=== PATIENT | male | born 1960 | race Caucasian/White ===

== ENCOUNTER 2016-05-23 06:24 | Inpatient (IN) | payer OTHER, MEDICARE ==
[2016-05-23] MEDS ORDERED: SODIUM CHLORIDE 1,000 ML IV STA ×3 (06:38→09:27)
[2016-05-23 07:17] LABS: MCH 20.8 pg (25.7-33.7); MCHC 30.3 g/dl (32.0-35.9); MEAN CELL VOLUME 68.5 fl (80-96); MEAN PLT VOLUME 8.4 fl (7.5-11.1); RDW 18.3 % (11.9-15.9); WHITE BLOOD COUNT 27.5 K/mm3 (4.0-10.0)
[2016-05-23 07:33] LABS: VENOUS BLOOD GAS HCO3 29.2 meq/L (22-29); VENOUS PH 7.41 (7.31-7.41)
--- NOTE | 2016-05-23 07:42 | PDOC ---
History of Present Illness <Kevin Rodriguez - Last Filed: 05/23/16 10:30> - General History Source: Patient Exam Limitations: No Limitations - History of Present Illness Initial Comments: 05/23/16 08:54 The patient is a 55 year old male, with a significant past medical history of heroin abuse (IV use), who presents to the emergency department with a fever onset last night. He states that his fever has been ranging from 103-104 degrees F. He denies taking anything for his symptoms. He reports that he is an active heroin user who is trying to quit. He states that he wants to get into a detox program. He also states that his is also a heroin user. He reports that he uses clean needles from [facility] and only uses them once. He also reports that he has been tested for HIV in the past and has been negative. He notes that he is willing to be tested again. The patient denies chest pain, shortness of breath, headache and dizziness. Denies chills, nausea, vomit, diarrhea and constipation. Denies dysuria, frequency, urgency and hematuria. Allergies: Penicillin Past surgical history: None reported Social history: Heroin use (IV use) <Jorge Weber - Last Filed: 05/23/16 10:37> - General Chief Complaint: SIRS, Suspected/Possible Stated Complaint: FEVER Time Seen by Provider: 05/23/16 07:12 Past History - Psycho/Social/Smoking Cessation Hx Suicidal Ideation: No Smoking History: Unknown if ever smoked <JenniferKevin - Last Filed: 05/23/16 10:30> <Jorge Weber - Last Filed: 05/23/16 10:37> - Past Medical History Allergies/Adverse Reactions: Allergies Allergy/AdvReac Type Severity Reaction Status Date / Time Penicillins Allergy Verified 05/23/16 08:02 Review of Systems - Review of Systems Able to Perform ROS?: Yes Comments:: 05/23/16 08:54 CONSTITUTIONAL: +Fever. No chills, no fatigue EYES: No visual changes ENT: No ear pain, no sore throat CARDIOVASCULAR: No chest pain, no palpitations RESPIRATORY: No cough, no SOB GI: No abdominal pain, no nausea, no vomiting, no constipation, no diarrhea GENITOURINARY: No dysuria, no frequency, no hematuria MUSKULOSKELETAL: No backpain, no joint pain, no myalgias SKIN: No rash NEURO: No headache <Jorge Weber - Last Filed: 05/23/16 10:37> *Physical Exam - Vital Signs Last Vital Signs Temp Pulse Resp BP Pulse Ox 102.5 F H 117 H 21 157/70 100 05/23/16 06:35 05/23/16 06:35 05/23/16 06:35 05/23/16 06:35 05/23/16 06:35 <Jennifer,Boris - Last Filed: 05/23/16 10:30> - Vital Signs Last Vital Signs Temp Pulse Resp BP Pulse Ox 102.5 F H 117 H 21 157/70 100 05/23/16 06:35 05/23/16 06:35 05/23/16 06:35 05/23/16 06:35 05/23/16 06:35 - Physical Exam Comments: 05/23/16 08:54 CONSTITUTIONAL: Disheveled appearance, obese; lethargic but easily arousable. HEAD: Normocephalic; atraumatic EYES: PERRL; EOM intact ENMT: +Poor oral hygiene. External appears normal; normal oropharynx NECK: Supple; non-tender; no cervical lymphadenopathy CARD: +III/ harsh systolic murmur best heard left parasternal 5th intercoastal space. Normal S1, S2; rubs, or gallops RESP: Normal chest excursion with respiration; breath sounds clear and equal bilaterally; no wheezes, rhonchi, or rales ABD: Soft, non-distended; non-tender; no palpable organomegaly, no palpable hernias EXT: +Right lower extremity is Warm to touch, edematous and well demarcated erythema. Hardening of the soft tissue swelling to the right medial thigh. Normal ROM in all four extremities; non-tender to palpation; distal pulses intact SKIN: +Multiple excoriated lesions with track arzate on the right lower extremity. No petechiae NEURO: No focal neurological deficiencies. Lethargic, arousable, moving all extremities, answer questions appropriately <Jorge Weber - Last Filed: 05/23/16 10:37> Heart Score/ECG Review #1 ECG reviewed & interpreted by me at: 08:56 05/23/16 08:51 Ventricular rate: 109 bpm Sinus tachycardia Possible left atrial enlargement Incomplete right bundle branch block <CaitlinMichelle riveracrystal Thompsone - Last Filed: 05/23/16 10:37> ED Treatment Course - LABORATORY CBC & Chemistry Diagram: 05/23/16 07:05 05/23/16 07:05 - ADDITIONAL ORDERS Additional order review: Laboratory Results 05/23/16 07:30 VBG pH 7.41 POC VBG pCO2 47.3 POC VBG pO2 24.6 L 05/23/16 07:05 RBC 4.13 MCV 68.5 L MCHC 30.3 L RDW 18.3 H MPV 8.4 Neutrophils % Y Lymphocytes % Y <JenniferKevin - Last Filed: 05/23/16 10:30> - LABORATORY CBC & Chemistry Diagram: 05/23/16 07:05 05/23/16 07:05 - ADDITIONAL ORDERS Additional order review: Laboratory Results 05/23/16 05/23/16 05/23/16 07:30 07:05 07:05 INR PTT (Actin FS) VBG pH 7.41 POC VBG pCO2 47.3 POC VBG pO2 24.6 L Sodium Potassium Chloride Carbon Dioxide Anion Gap BUN Creatinine Creat Clearance w eGFR Random Glucose Lactic Acid 0.780 Calcium Total Bilirubin AST ALT Alkaline Phosphatase Creatine Kinase Troponin I Total Protein Albumin Blood Type A POSITIVE Antibody Screen Negative 05/23/16 05/23/16 07:05 07:05 INR 1.17 H PTT (Actin FS) 21.5 L VBG pH POC VBG pCO2 POC VBG pO2 Sodium 132 L Potassium 3.6 Chloride 96 L Carbon Dioxide 28 Anion Gap 8 BUN 9 Creatinine 0.8 Creat Clearance w eGFR > 60 Random Glucose 128 H Lactic Acid Calcium 8.8 Total Bilirubin 0.5 AST 9 L ALT 13 Alkaline Phosphatase 73 Creatine Kinase 50 Troponin I < 0.02 Total Protein 7.1 Albumin 3.2 L Blood Type Antibody Screen 05/23/16 07:05 RBC 4.13 MCV 68.5 L MCHC 30.3 L RDW 18.3 H MPV 8.4 Neutrophils % Y Lymphocytes % Y - RADIOLOGY Radiograph Interpretation: 05/23/16 08:49 Chest X-Ray Reviewed by: Dr. Gregory Whitaker Impression: No acute pathology. Right lower extremity doppler Reviewed by: Dr. Nico Sinclair Impression: No DVT is identified involving the right leg. <Jorge Weber - Last Filed: 05/23/16 10:37> Medical Decision Making - Medical Decision Making 05/23/16 10:31 Patient is a 55-year-old male with history of IVDA who presents with high fever , shaking chills, right lower extremity cellulitis and likely acute infective endocarditis. On initial evaluation, patient noted to be tachycardic and febrile. Physical exam reveals no evidence of meningismus, harsh 3/6 systolic murmur was noted (best heard in the left parasternal area, fifth intercostal space; splinter hemorrhages noted to the nailbed of the left second toe. CBC reveals significant leukocytosis with bandemia. CMP reveals a normal lactic acid. Urinalysis is within normal limit without evidence of pyuria. Chest x-ray reveals no evidence of infiltrate or effusion. Right lower extremity Doppler shows no evidence of DVT. 3 sets of blood cultures are been obtained. IV vancomycin and gentamicin has been administered for gram-positive and gram- negative coverage respectively. Patient will require admission for continuous IV antibiotic therapy and echocardiography to evaluate for possible vegetations. EKG reveals sinus tachycardia with first-degree AV block and RBBB which may represent extension of the infection within the myocardium. Dr. Cartagena of cardiology has been consulted and agrees with the plan of care. <Kevin Rodriguez - Last Filed: 05/23/16 10:30> - Medical Decision Making 05/23/16 09:22 Dr. Patel was called regarding the patient at 8:55am Dr. Patel was consulted regarding the patient at 9:09am [phone] <Jorge Weber - Last Filed: 05/23/16 10:37> *DC/Admit/Observation/Transfer - Discharge Dispostion Admit: Yes - Attestations Physician Attestion: 05/23/16 10:31 The documentation was prepared by the scribe under my direct supervision. I have reviewed the documentation which correctly represents the findings, medical decision-making and critical action taken by me. <Kevin Rodriguez - Last Filed: 05/23/16 10:30> - Attestations Scribe Attestion: 05/23/16 08:54 Documentation prepared by Jorge Webre, acting as resident medical officer for Kevin Rodriguez MD. <TiaJorge Camille - Last Filed: 05/23/16 10:37> Diagnosis at time of Disposition: Cellulitis and abscess of leg, except foot Sepsis Qualifiers: Sepsis type: sepsis due to unspecified organism Qualified Code(s): A41.9 - Sepsis, unspecified organism Endocarditis, valve unspecified Qualifiers: Endocarditis type: infective Infective endocarditis organism: bacterial Chronicity: acute Qualified Code(s): I33.0 - Acute and subacute infective endocarditis
[2016-05-23 07:50] LABS: INR 1.17 (0.82-1.09); PROTHROMBIN TIME (PATIENT) 12.9 SEC (9.98-11.88)
[2016-05-23 07:53] LABS: ACTIVATED PTT 21.5 SECONDS (26.9-34.4)
[2016-05-23 08:00] LABS: ALBUMIN 3.2 g/dl (3.4-5.0); ANION GAP 8 (8-16); BILIRUBIN,TOTAL 0.5 mg/dL (0.2-1.0); CALCIUM 8.8 mg/dL (8.5-10.1); CO2 28 mmol/L (21-32); CREATININE 0.8 mg/dL (0.7-1.3); GLUCOSE,RANDOM 128 mg/dL (74-106); SGOT/AST 9 U/L (15-37); SGPT/ALT 13 U/L (12-78); TOT PROT 7.1 g/dl (6.4-8.2)
[2016-05-23 08:02] LABS: ALK PHOS 73 U/L (45-117); TROPONIN I < 0.02 ng/ml (0.00-0.05)
[2016-05-23] MEDS ORDERED: ACETAMINOPHEN 1000 MG/100 ML VIAL (NON FORMULARY) IVPB ONE (08:15)
[2016-05-23] MEDS ORDERED: GENTAMICIN INJECTION 120 MG in DEXTROSE 5%-WATER - 250 ML IVPB ONE (09:00)
[2016-05-23] MEDS ORDERED: VANCOMYCIN 1,500 MG in DEXTROSE 5%-WATER - 500 ML IVPB ONE (09:00)
[2016-05-23 09:28] LABS: PLATELET COMMENT2 NO CLOTTING DETECTED; PLATELET COMMENT3 MOD LARGE PLTS; PLATELET COUNT 237 K/MM3 (134-434); PLATELET ESTIMATE ADEQUATE (NORMAL)
[2016-05-23 09:29] LABS: ANISOCYTOSIS 2+; HYPOCHROMIA 2+; MICROCYTOSIS 2+; POIKILOCYTOSIS 2+; POLYCHROMASIA 2+; TOXIC GRANULATION FEW
[2016-05-23 10:20] LABS: URINE APPEARANCE CLEAR; URINE BILIRUBIN NEGATIVE (NEGATIVE); URINE BLOOD NEGATIVE (NEGATIVE); URINE COLOR COLORLESS; URINE GLUCOSE (UA) NEGATIVE (NEGATIVE); URINE KETONE NEGATIVE (NEGATIVE); URINE LEUK ESTERASE NEGATIVE (NEGATIVE); URINE NITRITE NEGATIVE (NEGATIVE); URINE PROTEIN NEGATIVE (NEGATIVE); URINE UROBILINOGEN NEGATIVE E.U./dl (0.2-1.0)
[2016-05-23 12:52] LABS: HIV 1 & 2 AB NEGATIVE; HIV 1 AGp24 NEGATIVE
--- NOTE | 2016-05-23 13:01 | PN ---
Teaching Attending Note Name of Resident: Angelica Sneed ATTENDING PHYSICIAN STATEMENT I saw and evaluated the patient. I reviewed the resident's note and discussed the case with the resident. I agree with the resident's findings and plan as documented. SUBJECTIVE: This is a 55-year-old man with a history of IV heroin abuse who presented to the ER with fever that started last night. He reports redness and pain of his right leg. OBJECTIVE: Vital Signs Period Temp Pulse Resp BP Sys/Stearns Pulse Ox Last 24 Hr 102.5 F 107-117 16-21 157-166/67-70 96-100 HEART: S1 S2, tachycardic, (+) 2/6 systolic murmur LUNGS: Clear ABDOMEN: Soft, non-tender, non-distended, normal BS EXTREMITIES: Erythema and swelling of RLE ASSESSMENT AND PLAN: This is a 55-year-old man with a history of heroin abuse who comes to the ER with fever and redness of his RLE. 1. Sepsis secondary to RLE cellulitis - Consider endocarditis - Vancomycin, Gentamicin given in ER - IV fluid - Follow up blood cultures - Echocardiogram - ID consult 2. Cardiac murmur - Echocardiogram 3. Anemia, microcytic - No prior labs available - Check iron studies 4. Heroin abuse - Start Methadone taper
--- NOTE | 2016-05-23 13:14 | EKG ---
Test Reason : Blood Pressure : / mmHG Vent. Rate : 109 BPM Atrial Rate : 109 BPM P-R Int : 202 ms QRS Dur : 098 ms QT Int : 322 ms P-R-T Axes : 065 027 055 degrees QTc Int : 433 ms SINUS TACHYCARDIA WITH 1ST DEGREE A-V BLOCK POSSIBLE LEFT ATRIAL ENLARGEMENT INCOMPLETE RIGHT BUNDLE BRANCH BLOCK WHEN COMPARED WITH ECG OF 06-FEB-2008 02:41, INCOMPLETE RIGHT BUNDLE BRANCH BLOCK IS NOW PRESENT Confirmed by PHILIP DAWSON MD ([id number]) on 05/23/2016 1:13:47 PM Referred By: Confirmed By:PHILIP DAWSON MD
--- NOTE | 2016-05-23 13:38 | HP ---
CHIEF COMPLAINT: Fever PCP: None HISTORY OF PRESENT ILLNESS: 55 year old male with a significant PMH of IV heroin abuse, anxiety comes to the hospital complaining of fever that started last night. He measured that at home and was 103-104. Additionally he noticed that his right lower extremity is red and swollen for several weeks. He used it to inject drugs. He denies pain in right leg. Last time he used heroin was yesterday.The pt is complaining of chronic constipation. He denies chills, chest pain, palpitations, SOB, cough, abdominal pain, N/V, diarrhea, dysuria, increased frequency, urgency. ER course was notable for: (1) WBC, T:102.5 (2) EKG (3) Dupplex of RLE PAST MEDICAL HISTORY: IV drug abuse for 6 years, iv heroin everyday PAST SURGICAL HISTORY: right elbow repair after stubbing in 1999 Social History: Smoking:Denies, never smoker Alcohol:Denies, Drugs: Yes, heroin Family History: Mother: DM, Father:None Allergies Penicillins Allergy (Verified 05/23/16 08:02) HOME MEDICATIONS: Xanax 1 mg PRN REVIEW OF SYSTEMS CONSTITUTIONAL: diaphoresis, fever Absent: chills, generalized weakness, malaise, weight change HEENT: Absent: rhinorrhea, nasal congestion, throat pain, throat swelling, difficulty swallowing, mouth swelling, ear pain, eye pain, visual changes CARDIOVASCULAR: Absent: chest pain, syncope, palpitations, irregular heart rate, lightheadedness , peripheral edema RESPIRATORY: Absent: cough, shortness of breath, dyspnea with exertion, orthopnea, wheezing, GASTROINTESTINAL:constipation Absent: abdominal pain, abdominal distension, nausea, vomiting, diarrhea, GENITOURINARY: Absent: dysuria, frequency, urgency, hesitancy, hematuria, flank pain, genital pain MUSCULOSKELETAL: Absent: myalgia, arthralgia, joint swelling, back pain, neck pain SKIN: rash in right lower extremity Absent: itching, pallor ENDOCRINE: Absent: unexplained weight gain, unexplained weight loss, heat intolerance, cold intolerance NEUROLOGIC: Absent: headache, focal weakness or paresthesias, dizziness, unsteady gait, PSYCHIATRIC: Absent: anxiety, depression PHYSICAL EXAMINATION Vital Signs - 24 hr 05/23/16 10:24 Pulse Rate [ 107 H Left Radial] Respiratory 16 Rate Blood Pressure 166/67 [Right Arm] O2 Sat by Pulse 96 Oximetry (%) GENERAL: Awake, alert, and fully oriented. HEAD: Normal with no signs of trauma. EYES: Pupils equal, round and reactive to light, extraocular movements intact, sclera anicteric, conjunctiva clear. EARS, NOSE, THROAT: Ears normal, nares patent, oropharynx clear without exudates , dental caries. Moist mucous membranes. NECK: Normal range of motion, supple without lymphadenopathy, JVD, or masses. LUNGS: Breath sounds equal, clear to auscultation bilaterally. No wheezes, and no crackles. No accessory muscle use. HEART: Regular rate and rhythm, S1 and S2, systolic murmur over left sternal border, no rub or gallop. ABDOMEN: Obese, soft, nontender, not distended, normoactive bowel sounds, no guarding, no rebound, no masses. No hepatomegaly or splenomegaly. MUSCULOSKELETAL: Normal range of motion at all joints. No bony deformities or tenderness. No CVA tenderness. UPPER EXTREMITIES: No peripheral edema, RUE: track arzate. No nail changes. LOWER EXTREMITIES: 2+ pulses, warm, No calf tenderness. No peripheral edema, RLE : redness up to the knee, several small wounds in thigh and one below the knee, draining clear fluid, multiple track arzate. LLE: no skin changes, redness in second toe. Upper extremities have track arzate, no wounds. Fungal infection in both feet. NEUROLOGICAL: CN 2-12 intact. Face symmetric, strength 5/5, no sensation channges, nl gait. SKIN: Warm, dry, normal turgor. ASSESSMENT/PLAN: 55 year old male with a significant PMH of IV heroin abuse, anxiety comes to the hospital complaining of fever that started last night. He measured that at home and was 103-104. Additionally he noticed that his right lower extremity is red and swollen. He is admitted for sepsis, possibly endocarditis due to cellulitis. Sepsis, possibly endocarditis due to cellulitis: -IV abx:Gentamycin and Vancomycin given in ED. -discussed with Dr. Montano and ordered Ceftizidime 2 g Q8h and Vanomycin 1.5 BID. -f/u blood cultures 3 sets -telemetry monitoring -ECHO ordered, -cardiology consultation -wound care -IVF NS -Tetanus shot Microcytic anemia: -will f/u iron studies -no known baseline -FOBT IV drug abuse; -Detox consultation -Methadone taper DVT PPX: -SCDs GI PPX: no recommendation F/E/N: NS/No changes/Regular Disposition: Admission to telemetry Problem List - Problem (1) Cellulitis and abscess of leg, except foot Code(s): L02.419 - CUTANEOUS ABSCESS OF LIMB, UNSPECIFIED L03.119 - CELLULITIS OF UNSPECIFIED PART OF LIMB (2) Endocarditis, valve unspecified Code(s): I38 - ENDOCARDITIS, VALVE UNSPECIFIED Qualifiers: Endocarditis type: infective Infective endocarditis organism: bacterial Chronicity: acute Qualified Code(s): I33.0 - Acute and subacute infective endocarditis (3) Sepsis Code(s): A41.9 - SEPSIS, UNSPECIFIED ORGANISM Qualifiers: Sepsis type: sepsis due to unspecified organism Qualified Code(s): A41.9 - Sepsis, unspecified organism Visit type - Emergency Visit Emergency Visit: Yes ED Registration Date: 05/23/16 Care time: The patient presented to the Emergency Department on the above date and was hospitalized for further evaluation of their emergent condition. - New Patient This patient is new to me today: Yes Date on this admission: 05/23/16 - Critical Care Critical Care patient: No
[2016-05-23] MEDS ORDERED: SODIUM CHLORIDE 1,000 ML IV SCH (13:45)
[2016-05-23 13:50] VITALS: BMI 30.7
[2016-05-23] MEDS ORDERED: diazePAM 5 MG TABLET PO PRN (15:09)
--- NOTE | 2016-05-23 16:51 | CONSULT ---
Consult Detox [facility] Reason for Current Admission/Consult: opioid withdrawal sx. Referred by:: Angelica Sneed Res - History History of Present Illness: 55 y/o man came to ED because of fever 102-104F for the past 2-4 days. Pt. reports using heroin IV on a regular basis. - History Source History Provided By: Patient, Medical Record - Alcohol/Substance Use Hx Alcohol Use: No Hx Substance Use: Yes (heroin) - Current Drug/Alcohol Use Heroin Route: Injection Frequency: Daily Amount used: 10 bags Age of first use: 38 Date of Last Use: 05/22/16 - Significant Medical Findings: Laboratory Tests 05/23/16 05/23/16 05/23/16 07:05 07:05 07:05 WBC 27.5 H RBC 4.13 Hgb 8.6 L Hct 28.3 L MCV 68.5 L MCHC 30.3 L RDW 18.3 H Plt Count 237 MPV 8.4 Neutrophils % 81.0 Lymphocytes % 2.0 L Monocytes % 5.0 Band Neutrophils 12.0 H Toxic Granulation Few Platelet Estimate Adequate Platelet Comment No clotting detected Polychromasia 2+ Hypochromic-Microcytic 2+ Poikilocytosis 2+ Anisocytosis 2+ Microcytosis 2+ INR 1.17 H PTT (Actin FS) 21.5 L VBG pH POC VBG pCO2 POC VBG pO2 Sodium 132 L Potassium 3.6 Chloride 96 L Carbon Dioxide 28 Anion Gap 8 BUN 9 Creatinine 0.8 Creat Clearance w eGFR > 60 Random Glucose 128 H Lactic Acid Calcium 8.8 Total Bilirubin 0.5 AST 9 L ALT 13 Alkaline Phosphatase 73 Creatine Kinase 50 Troponin I < 0.02 Total Protein 7.1 Albumin 3.2 L Urine Color Urine Appearance Urine pH Ur Specific [place] Urine Protein Urine Glucose (UA) Urine Ketones Urine Blood Urine Nitrite Urine Bilirubin Urine Urobilinogen Ur Leukocyte Esterase HIV 1&2 Antibody Screen HIV P24 Antigen Blood Type Antibody Screen 05/23/16 05/23/16 05/23/16 07:05 07:05 07:30 WBC RBC Hgb Hct MCV MCHC RDW Plt Count MPV Neutrophils % Lymphocytes % Monocytes % Band Neutrophils Toxic Granulation Platelet Estimate Platelet Comment Polychromasia Hypochromic-Microcytic Poikilocytosis Anisocytosis Microcytosis INR PTT (Actin FS) VBG pH 7.41 POC VBG pCO2 47.3 POC VBG pO2 24.6 L Sodium Potassium Chloride Carbon Dioxide Anion Gap BUN Creatinine Creat Clearance w eGFR Random Glucose Lactic Acid 0.780 Calcium Total Bilirubin AST ALT Alkaline Phosphatase Creatine Kinase Troponin I Total Protein Albumin Urine Color Urine Appearance Urine pH Ur Specific [place] Urine Protein Urine Glucose (UA) Urine Ketones Urine Blood Urine Nitrite Urine Bilirubin Urine Urobilinogen Ur Leukocyte Esterase HIV 1&2 Antibody Screen HIV P24 Antigen Blood Type A POSITIVE Antibody Screen Negative 05/23/16 05/23/16 09:53 10:20 WBC RBC Hgb Hct MCV MCHC RDW Plt Count MPV Neutrophils % Lymphocytes % Monocytes % Band Neutrophils Toxic Granulation Platelet Estimate Platelet Comment Polychromasia Hypochromic-Microcytic Poikilocytosis Anisocytosis Microcytosis INR PTT (Actin FS) VBG pH POC VBG pCO2 POC VBG pO2 Sodium Potassium Chloride Carbon Dioxide Anion Gap BUN Creatinine Creat Clearance w eGFR Random Glucose Lactic Acid Calcium Total Bilirubin AST ALT Alkaline Phosphatase Creatine Kinase Troponin I Total Protein Albumin Urine Color Colorless Urine Appearance Clear Urine pH 9.0 H Ur Specific [place] 1.003 Urine Protein Negative Urine Glucose (UA) Negative Urine Ketones Negative Urine Blood Negative Urine Nitrite Negative Urine Bilirubin Negative Urine Urobilinogen Negative Ur Leukocyte Esterase Negative HIV 1&2 Antibody Screen Negative HIV P24 Antigen Negative Blood Type Antibody Screen Pt. started on methadone taper,however urine toxicology is pending. COWS - Scale Resting Pulse: 2= IA 101-120 Sweatin=Flushed/Facial Moisture Restless Observation: 1= Difficult to Sit Still Pupil Size: 2= Moderately Dilated Bone or Joint Aches: 2= Severe Diffuse Aches Runny Nose/ Eye Tearin= Runny Nose/Eyes GI Upset > 30mins: 2= Nausea/Diarrhea Tremor Observation: 2= Slight Tremor Visible Yawning Observation: 1= 1-2x During Session Anxiety or Irritability: 2=Irritable/Anxious Goose Flesh Skin: 0=Smooth Skin COWS Score: 18 Assessment Plan - Diagnosis (1) Cellulitis and abscess of leg, except foot Status: Acute (2) Opioid dependence with withdrawal Status: Acute - Plan Plan: detox with methadone and refer for medication assisted treatment - Medication Detox Regimen/Protocol: Methadone
[2016-05-23] MEDS ORDERED: METHADONE HCL 10 MG TABLET PO ONE (17:17)
[2016-05-23] MEDS ORDERED: METHADONE HCL 10 MG TABLET (FOR DETOX USE ONLY) PO ONE (17:17)
[2016-05-23] MEDS ORDERED: METHADONE HCL 10 MG TABLET ONE (17:27)
[2016-05-23] MEDS ORDERED: GENTAMICIN INJECTION 150 MG in DEXTROSE 5%-WATER - 250 ML IVPB SCH (18:00)
[2016-05-23] MEDS ORDERED: cefTAZidime PENTAHYDRATE 1 GM/50ML PRE-DOCKED (RESTRICTED TO ID) IVPB SCH (18:30)
[2016-05-23] MEDS: DOCUSATE SODIUM 100 MG CAPSULE (FP) PO SCH (21:14)
[2016-05-23] MEDS ORDERED: VANCOMYCIN 1 GRAM (PRE-DOCKED) 250 ML IVPB ONE (22:00)
[2016-05-23] MEDS ORDERED: VANCOMYCIN 1,500 MG in DEXTROSE 5%-WATER - 250 ML IVPB ONE (22:00)
[2016-05-23] MEDS: CEFTAZIDIME PENTAHYDRATE 2 GM in DEXTROSE 5%-WATER - 100 ML IVPB SCH (23:25)
[2016-05-23] MEDS ORDERED: IBUPROFEN 400 MG TABLET (FP) PO ONE (23:30)
[2016-05-24] MEDS: CEFTAZIDIME PENTAHYDRATE 2 GM in DEXTROSE 5%-WATER - 100 ML IVPB SCH ×2 (06:14→19:45)
[2016-05-24 07:31] LABS: BASOPHIL 0.4 % (0-2.0); EOSINOPHIL 0.1 % (0-4.5); MCH 21.4 pg (25.7-33.7); MCHC 31.9 g/dl (32.0-35.9); MEAN CELL VOLUME 67.3 fl (80-96); MEAN PLT VOLUME 7.8 fl (7.5-11.1); NEUTROPHILS 77.6 % (42.8-82.8); PLATELET COUNT 238 K/MM3 (134-434); RDW 18.5 % (11.9-15.9); WHITE BLOOD COUNT 10.9 K/mm3 (4.0-10.0)
[2016-05-24] MEDS ORDERED: VANCOMYCIN 1,500 MG in DEXTROSE 5%-WATER - 500 ML IVPB SCH (07:45)
[2016-05-24 08:01] LABS: CALCIUM 8.3 mg/dL (8.5-10.1)
[2016-05-24 08:03] LABS: CREATININE 0.6 mg/dL (0.7-1.3)
--- NOTE | 2016-05-24 08:41 | PN ---
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 He is HIV negative and Hep B andC negative. Previously followed at [facility] [place] with history of asthma. No prior admissions and no history of endocardititis, travel pets hobbies. He lives with his who also uses drugs. - Current Medication List Current Medications: Active Medications Diazepam (Valium -) 10 mg PO Q4H PRN PRN Reason: WITHDRAWAL(CONT SUBST) Stop: 05/26/16 15:08 Docusate Sodium (Colace -) 100 mg PO DAILY KYLER Last Admin: 05/23/16 21:14 Dose: Not Given Sodium Chloride (Normal Saline -) 1,000 mls @ 50 mls/hr IV ASDIR KYLER Stop: 05/24/16 13:40 Last Admin: 05/23/16 15:05 Dose: 50 mls/hr Ceftazidime 2 gm/ Dextrose 100 mls @ 200 mls/hr IVPB Q8H-IV KYLER Vancomycin HCl 1,500 mg/ (Dextrose) 500 mls @ 125 mls/hr IVPB Q12H KYLER Methadone HCl (Dolophine -) 20 mg PO ONCE ONE Stop: 05/24/16 10:01 Methadone HCl (Dolophine -) 10 mg PO ONCE ONE Stop: 05/27/16 10:01 Methadone HCl (Dolophine -) 15 mg PO ONCE ONE Stop: 05/25/16 10:01 Methadone HCl (Dolophine -) 15 mg PO ONCE ONE Stop: 05/26/16 10:01 Methadone HCl (Dolophine -) 5 mg PO ONCE@0600 ONE Stop: 05/28/16 06:01 - Objective Vital Signs: Vital Signs Temperature 97.7 F 05/24/16 07:28 Pulse Rate 79 05/24/16 07:28 Respiratory Rate 19 05/24/16 07:28 Blood Pressure 135/69 05/24/16 07:28 O2 Sat by Pulse Oximetry (%) 96 05/24/16 07:28 Constitutional: Yes: Well Nourished, No Distress Eyes: Yes: WNL, Conjunctiva Clear HENT: Yes: WNL, Atraumatic Neck: Yes: WNL, Supple Cardiovascular: Yes: Regular Rate and Rhythm, S1, S2. No: Murmur Respiratory: Yes: Regular, CTA Bilaterally Gastrointestinal: Yes: WNL, Normal Bowel Sounds, Soft, Other (umbilical hernia) . No: Tenderness, Epigastrium Extremities: Yes: Erythema, Other (Erythema RLE with necrotic ulcer no purulence seen leg is swollen but not much tenderness Multiple track arzate and few dry ulcers right thigh No adenopathy) Labs: CBC, BMP 05/24/16 05:35 05/24/16 05:35 INR, PTT INR 1.17 (0.82-1.09) H 05/23/16 07:05 Problem List - Problems (1) Cellulitis and abscess of leg, except foot Code(s): L02.419 - CUTANEOUS ABSCESS OF LIMB, UNSPECIFIED L03.119 - CELLULITIS OF UNSPECIFIED PART OF LIMB (2) Active intravenous drug use Code(s): F19.90 - OTHER PSYCHOACTIVE SUBSTANCE USE, UNSPECIFIED, UNCOMPLICATED Assessment/Plan Laboratory Tests 05/23/16 05/23/16 05/23/16 07:05 07:05 09:53 WBC 27.5 H Hgb Hct Plt Count BUN Random Glucose 128 H Creatine Kinase 50 Urine Blood Negative Ur Leukocyte Esterase Negative HIV 1&2 Antibody Screen HIV P24 Antigen 05/23/16 05/24/16 05/24/16 10:20 05:35 05:35 WBC 10.9 H D Hgb 8.2 L Hct 25.6 L Plt Count 238 BUN 10 Random Glucose Creatine Kinase Urine Blood Ur Leukocyte Esterase HIV 1&2 Antibody Screen Negative HIV P24 Antigen Negative Assessment Severe cellulitis of the right leg secondary IVDA Opiate dependency History of asthma Plan Blood cultures no growth so far Vancomcycin and Fortaz to cover strep staph and GNB includes pseudomonas ESR CRP ECHO IF no IV access use Levofloxacin 750mg and Linezolid 600mg bid Methadone HIV HEP C TDap Important he have a primary care to refer to discharge Charmaine LOTT
[2016-05-24] MEDS ORDERED: VANCOMYCIN 1,500 MG in DEXTROSE 5%-WATER - 250 ML IVPB SCH (10:00)
[2016-05-24] MEDS ORDERED: CEFTAZIDIME PENTAHYDRATE 2 GM in DEXTROSE 5%-WATER - 100 ML IVPB SCH (10:00)
[2016-05-24] MEDS ORDERED: VANCOMYCIN 1 GRAM (PRE-DOCKED) 250 ML IVPB SCH (10:00)
[2016-05-24] MEDS ORDERED: METHADONE HCL 10 MG TABLET PO ONE (10:00)
[2016-05-24] MEDS: DOCUSATE SODIUM 100 MG CAPSULE (FP) PO SCH (10:59)
--- NOTE | 2016-05-24 11:57 | PN ---
Progress Note (short form) - Note Progress Note: Subjective: no fever or chills, no abd pain , no cough , no diarrhea , no dysuria. admits to using heroin a week ago . he uses xanax as needed Objective: Vital Signs: Last Vital Signs Temp Pulse Resp BP Pulse Ox 97.7 F 79 19 135/69 96 05/24/16 07:28 05/24/16 07:28 05/24/16 07:28 05/24/16 07:28 05/24/16 07:28 Physical Exam: NAD. AAox3 HEENT: no facial droop, mouth with erythematous oropharynx , no exudate , no LAP in neck , no thrush CV : RRR, no MRG Lungs : CATB ext : no edema or erythema ove rL leg . R leg with erythema , increased warmth and oozing ulcer with scab on R butler . DP 2+ b/l . track arzate on thighs but no erythema . no LAP in groins . on nails 2 areas with non classic possible bled under nail bed on R Skin : no rash. track lines as above Labs: Laboratory Results - last 24 hr 05/23/16 05/23/16 05/24/16 10:20 20:35 05:35 WBC 10.9 H D RBC 3.81 L Hgb 8.2 L Hct 25.6 L MCV 67.3 L MCHC 31.9 L RDW 18.5 H Plt Count 238 MPV 7.8 Neutrophils % 77.6 Lymphocytes % 14.4 D Monocytes % 7.5 Eosinophils % 0.1 Basophils % 0.4 Sodium Potassium Chloride Carbon Dioxide Anion Gap BUN Creatinine Random Glucose Lactic Acid 1.469 Calcium Ferritin HIV 1&2 Antibody Screen Negative HIV P24 Antigen Negative 05/24/16 05/24/16 05:35 05:35 WBC RBC Hgb Hct MCV MCHC RDW Plt Count MPV Neutrophils % Lymphocytes % Monocytes % Eosinophils % Basophils % Sodium 139 Potassium 3.3 L Chloride 104 Carbon Dioxide 26 Anion Gap 9 BUN 10 Creatinine 0.6 L D Random Glucose 103 Lactic Acid Calcium 8.3 L Ferritin 44.750 HIV 1&2 Antibody Screen HIV P24 Antigen Imaging: Cxray reviewed. EKG reviewed. Assessment/Plan: 55 y/o man with h/o IV drug use , who presented with fever and RLE erythema and edema , he was found to have cellulitis of the R leg 1- Sepsis due to cellulitis of R the R LE : white count and fever curve improved on Abx still need to r/o endocarditis as pt is an IV drug user. the little bleeding lesions on nails are not classic for splinter hemorrhage . No murmur appreciated - follow blood cx , neg so far - follow echo - has no IV line , wasstarted on ceftazidime and vanco last night. he refused EJ, IJ or fem line at this point and undersatnds IV abx are needed . - will start linezolid and levaquin. cont ot try to place IV . - urine and cxray clean. - unfortunately, can't find fundoscope for fund exam 2- IV drug use , opioid dependence , with possible withdrawal sx . - cont mehtadone taper dispo : HLOC Visit type - Emergency Visit Emergency Visit: Yes ED Registration Date: 05/23/16 Care time: The patient presented to the Emergency Department on the above date and was hospitalized for further evaluation of their emergent condition. - New Patient This patient is new to me today: Yes Date on this admission: 05/24/16 - Critical Care Critical Care patient: No
[2016-05-24] MEDS ORDERED: LEVOFLOXACIN 750 MG TABLET PO SCH (12:00)
[2016-05-24] MEDS ORDERED: LINEZOLID 600 MG TABLET (RESTRICTED TO ID) PO SCH (12:00)
[2016-05-24 13:18] LABS: URINE MARIJUANA THC NEGATIVE ng/ml (CUTOFF=50)
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
[2016-05-24] MEDS ORDERED: POTASSIUM CHLORIDE TABS 20 MEQ TABLET.ER (FP) PO ONE (16:04)
[2016-05-24] MEDS: VANCOMYCIN 1,500 MG in DEXTROSE 5%-WATER - 500 ML IVPB SCH (21:18)
[2016-05-25] MEDS: CEFTAZIDIME PENTAHYDRATE 2 GM in DEXTROSE 5%-WATER - 100 ML IVPB SCH ×3 (02:35→22:17)
[2016-05-25 08:06] LABS: SERUM IRON 16 ug/dL (38-169); TOTAL IRON BINDING CAPACITY 304 ug/dL (250-450); UIBC 288 ug/dL (111-343)
--- NOTE | 2016-05-25 08:46 | MSN ---
Progress Note (SOAP) - Subjective Chief Complaint: right leg cellulitis History of Present Illness: 55 year old with pmhx of heroin abuse and asthma presnts with right leg swellin gand fever since 05/22/16. He says his fever has been between 103-104F and denies taking anything for his symptoms. He says he only uses clean needles, only uses them once and does not share. Today he denies any fever, chills, back pain, chest pain, headach, vision changes and SOB. - Current Medications Current Medications: Active Medications Docusate Sodium (Colace -) 100 mg PO DAILY [facility] Last Admin: 05/24/16 10:59 Dose: 100 mg Ceftazidime 2 gm/ Dextrose 100 mls @ 200 mls/hr IVPB Q8H-IV KYLER PRN Reason: Protocol Last Admin: 05/25/16 02:35 Dose: 200 mls/hr Vancomycin HCl 1,500 mg/ (Dextrose) 500 mls @ 250 mls/hr IVPB BID [facility] Last Admin: 05/24/16 21:18 Dose: 250 mls/hr Methadone HCl (Dolophine -) 10 mg PO ONCE ONE Stop: 05/27/16 10:01 Methadone HCl (Dolophine -) 15 mg PO ONCE ONE Stop: 05/25/16 10:01 Methadone HCl (Dolophine -) 15 mg PO ONCE ONE Stop: 05/26/16 10:01 Methadone HCl (Dolophine -) 5 mg PO ONCE@0600 ONE Stop: 05/28/16 06:01 - Objective Vital Signs: Vital Signs Temperature 98.7 F 05/25/16 07:53 Pulse Rate 86 05/25/16 07:53 Respiratory Rate 19 05/25/16 07:53 Blood Pressure 114/73 05/25/16 07:53 O2 Sat by Pulse Oximetry (%) 97 05/25/16 07:53 Constitutional: Yes: Well Nourished, No Distress, Calm Eyes: Yes: Conjunctiva Clear, EOM Intact Neck: Yes: WNL, Supple Cardiovascular: Yes: Tachycardia, Murmur (possible tricuspid regurgitation), S1 , S2 Respiratory: Yes: WNL, Regular, CTA Bilaterally Gastrointestinal: Yes: Normal Bowel Sounds, Soft, Hernia (Umbilical), Tenderness (LLQ) Edema: No Integumentary: Yes: Other (Multiple eythematous lesions in a straight line on upper extremities) Neurological: Yes: WNL, Alert, Oriented Psychiatric: Yes: WNL, Alert, Oriented Labs Lab Results: CBC, BMP 05/24/16 05:35 Assessment/Plan Sepsis, possibly endocarditis due to cellulitis: -continue Ceftizidime and Vanomycin-currently on day 2-vanco trough at 7.8- recheck tomorrow at 9:30 -Blood cultures negative 3 days- IE very unlikely -urine culture negative -UA negative -tetanus toxoid still pending-tetanus given -telemetry monitoring d/c -ECHO done this morning but if negative do CHARITY -cardiology consultation- colonoscopy explained to patient -continue NS GI bleed -internal hemorrhoids on rectal -most likely lower GI bleed but cannot rule out upper -consult GI -will need colonoscopy in the future to r/o cancer Constipation -treat with lactulose, miralax, senna Microcytic anemia: -Iron deficiency -stool occult blood positive -Iron supplimentation IV drug abuse: -Methadone taper started Hypophospatemia -Replete and recheck tomorrow DVT PPX: -SCDs Rehab -Patient wishes to enter rehab program but says no one will accept his insurance. speak with social work/showcase maker about assisting him in finding a rehab clinic F/E/N: NS/No changes/Regular
[2016-05-25 09:05] LABS: CALCIUM 8.7 mg/dL (8.5-10.1); CREATININE 0.8 mg/dL (0.7-1.3); MAGNESIUM 2.4 mg/dL (1.8-2.4); PHOSPHOROUS 2.2 mg/dL (2.5-4.9)
[2016-05-25] MEDS ORDERED: METHADONE HCL 5 MG TABLET PO ONE (10:00)
[2016-05-25] MEDS: DOCUSATE SODIUM 100 MG CAPSULE (FP) PO SCH (10:03)
--- NOTE | 2016-05-25 11:13 | PN ---
Progress Note, Physician Chief Complaint: ID Overall feels better today Notes some blood per rectum - Current Medication List Current Medications: Active Medications Docusate Sodium (Colace -) 100 mg PO DAILY [facility] Last Admin: 05/25/16 10:03 Dose: 100 mg Ceftazidime 2 gm/ Dextrose 100 mls @ 200 mls/hr IVPB Q8H-IV KYLER PRN Reason: Protocol Last Admin: 05/25/16 10:02 Dose: 200 mls/hr Vancomycin HCl 1,500 mg/ (Dextrose) 500 mls @ 250 mls/hr IVPB BID [facility] Last Admin: 05/24/16 21:18 Dose: 250 mls/hr Methadone HCl (Dolophine -) 10 mg PO ONCE ONE Stop: 05/27/16 10:01 Methadone HCl (Dolophine -) 15 mg PO ONCE ONE Stop: 05/26/16 10:01 Methadone HCl (Dolophine -) 5 mg PO ONCE@0600 ONE Stop: 05/28/16 06:01 - Objective Vital Signs: Vital Signs Temperature 98.7 F 05/25/16 07:53 Pulse Rate 102 H 05/25/16 09:56 Respiratory Rate 14 05/25/16 09:56 Blood Pressure 148/76 05/25/16 09:56 O2 Sat by Pulse Oximetry (%) 97 05/25/16 07:53 Constitutional: Yes: No Distress Neck: Yes: WNL, Supple Cardiovascular: Yes: Regular Rate and Rhythm, S1, S2 Respiratory: Yes: WNL, Regular, CTA Bilaterally Gastrointestinal: Yes: Soft. No: Tenderness Extremities: Yes: Erythema Labs: CBC, BMP 05/24/16 05:35 05/25/16 08:20 INR, PTT INR 1.17 (0.82-1.09) H 05/23/16 07:05 Problem List - Problems (1) Cellulitis and abscess of leg, except foot Code(s): L02.419 - CUTANEOUS ABSCESS OF LIMB, UNSPECIFIED L03.119 - CELLULITIS OF UNSPECIFIED PART OF LIMB (2) Active intravenous drug use Code(s): F19.90 - OTHER PSYCHOACTIVE SUBSTANCE USE, UNSPECIFIED, UNCOMPLICATED Assessment/Plan Microbiology 05/23/16 09:53 Urine - Urine Clean Catch Urine Culture - Final NO GROWTH OBTAINED 05/23/16 08:00 Blood - Peripheral Venous Blood Culture - Preliminary NO GROWTH OBTAINED AFTER 48 HOURS, INCUBATION TO CONTINUE FOR 3 DAYS. 05/23/16 07:05 Blood - Peripheral Venous Blood Culture - Preliminary NO GROWTH OBTAINED AFTER 48 HOURS, INCUBATION TO CONTINUE FOR 3 DAYS. 05/23/16 07:05 Blood - Peripheral Venous Blood Culture - Preliminary NO GROWTH OBTAINED AFTER 48 HOURS, INCUBATION TO CONTINUE FOR 3 DAYS. Laboratory Tests 05/23/16 05/24/16 05/25/16 10:20 05:35 08:20 WBC 10.9 H D Hgb 8.2 L Hct 25.6 L Plt Count 238 BUN 9 Creatinine 0.8 D HIV 1&2 Antibody Screen Negative HIV P24 Antigen Negative Asseessment Cellulitis leg secondary IVDA Opiate dependency Microcytic anemia GI bleeding Plan Check Vancomycin levels Continue antibiotics GI consult plus HGB A2 F thallasemia Doubt endocarditis with negative blood cultures very unlikely though not impossible Charmaine LOTT
[2016-05-25] MEDS: VANCOMYCIN 1,500 MG in DEXTROSE 5%-WATER - 500 ML IVPB SCH (12:50)
--- NOTE | 2016-05-25 14:03 | PN ---
Physical Exam: SUBJECTIVE: Patient seen and examined. He is complaining of constipation. He has noticed bright blood with BM for the past several months but more for the past 2 days. He denies abdominal pain, nausea, vomiting, heartburn, pain in lower extremity, chest pain, palpitations, dizziness, dysuria, fever, chills. OBJECTIVE: Vital Signs Period Temp Pulse Resp BP Sys/Stearns Pulse Ox Last 24 Hr 97.8 F-98.9 F 86-109 14-20 114-164/65-93 95-97 GENERAL: The patient is awake, alert, and fully oriented, in no acute distress. HEAD: Normal with no signs of trauma. EYES: extraocular movements intact, conjunctiva clear. ENT: moist mucous membranes. NECK: Trachea midline, full range of motion, supple. LUNGS: Breath sounds equal, clear to auscultation bilaterally, no wheezes, no crackles, no accessory muscle use. HEART: Regular rate and rhythm, S1, S2 without murmur, rub or gallop. ABDOMEN: Obese, soft, nontender, nondistended, normoactive bowel sounds, no guarding, no rebound. EXTREMITIES: 2+ pulses, warm, well-perfused, no edema. RLE: redness up to the knee, several small wounds in thigh and one below the knee, draining clear fluid , multiple track arzate. LLE: no skin changes. Upper extremities have track arzate , no wounds. Fungal infection in both feet., dark discoloration in second toe of right foot. NEUROLOGICAL: Cranial nerves II through XII grossly intact. Normal speech, no facial asymmetry, gait not observed. PSYCH: Normal mood, normal affect. SKIN: Warm, dry, normal turgor. RECTAL: extrenal hemorrhoid, bright blood visible outside, FOBT pos. Laboratory Results - last 24 hr 05/24/16 05/24/16 05/25/16 05:35 12:35 08:20 Sodium 139 Potassium 3.9 Chloride 106 Carbon Dioxide 24 Anion Gap 9 BUN 9 Creatinine 0.8 D Random Glucose 139 H D Calcium 8.7 Phosphorus 2.2 L Magnesium 2.4 Iron 16 L TIBC 304 Iron Saturation 5 L Stool Occult Blood Cancelled Vancomycin Trough 05/25/16 11:25 Sodium Potassium Chloride Carbon Dioxide Anion Gap BUN Creatinine Random Glucose Calcium Phosphorus Magnesium Iron TIBC Iron Saturation Stool Occult Blood Vancomycin Trough 7.819 Active Medications Generic Name Dose Route Start Last Admin Trade Name Boris PRN Reason Stop Dose Admin Docusate Sodium 100 mg 05/23/16 13:15 05/25/16 10:03 Colace - PO 100 mg DAILY KYLER Administration Ceftazidime 2 gm/ Dextrose 100 mls @ 200 mls/hr 05/24/16 18:00 05/25/16 10:02 IVPB 200 mls/hr Q8H-IV KYLER Administration Protocol Vancomycin HCl 1,500 mg/ 500 mls @ 250 mls/hr 05/24/16 22:00 05/25/16 12:50 Dextrose IVPB 250 mls/hr BID KYLER Administration Methadone HCl 10 mg 05/27/16 10:00 Dolophine - PO 05/27/16 10:01 ONCE ONE Methadone HCl 15 mg 05/26/16 10:00 Dolophine - PO 05/26/16 10:01 ONCE ONE Methadone HCl 5 mg 05/28/16 06:00 Dolophine - PO 05/28/16 06:01 ONCE@0600 ONE EKG:NSR, 1st degree AV block, incomplete RBBB ASSESSMENT/PLAN: 55 year old male with a significant PMH of IV heroin abuse, anxiety comes to the hospital complaining of fever that started last night. He measured that at home and was 103-104. Additionally he noticed that his right lower extremity is red and swollen. He is admitted for sepsis, possibly endocarditis due to cellulitis. Sepsis due to cellulitis with possible endocarditis: -IV abx:Gentamycin and Vancomycin given in ED. -discussed with Dr. Montano and ordered Ceftizidime 2 g Q8h and Vanomycin 1.5 BID , today is day 3 -blood cultures 3 sets-negative -telemetry monitoring, transferred to med surgery today -ECHO ordered -f/u cardiology consultation -wound care -Tetanus shot Microcytic anemia: -will f/u iron studies -no known baseline Lower GI Bleeding: -external hemorrhoid visible, -rectal exam done, FOBT positive -GI consult Chronic constipation: -Colace qd -Lactulose -Miralax qd Hypophosphatemia: -Phos-NaK i bag -will f/u labs tomorrow IV drug abuse; -Detox consultation -Methadone taper started DVT PPX: -SCDs -ambulating GI PPX: no recommendation F/E/N: NS/No changes/Regular Disposition: Med surg Problem List - Problems (1) Cellulitis and abscess of leg, except foot Code(s): L02.419 - CUTANEOUS ABSCESS OF LIMB, UNSPECIFIED L03.119 - CELLULITIS OF UNSPECIFIED PART OF LIMB (2) Endocarditis, valve unspecified Code(s): I38 - ENDOCARDITIS, VALVE UNSPECIFIED Qualifiers: Endocarditis type: infective Infective endocarditis organism: bacterial Chronicity: acute Qualified Code(s): I33.0 - Acute and subacute infective endocarditis (3) Sepsis Code(s): A41.9 - SEPSIS, UNSPECIFIED ORGANISM Qualifiers: Sepsis type: sepsis due to unspecified organism Qualified Code(s): A41.9 - Sepsis, unspecified organism Visit type - Emergency Visit Emergency Visit: Yes ED Registration Date: 05/23/16 Care time: The patient presented to the Emergency Department on the above date and was hospitalized for further evaluation of their emergent condition. - New Patient This patient is new to me today: No - Critical Care Critical Care patient: No - Discharge Referral Referred to [facility] Med P.C.: No
[2016-05-25] MEDS ORDERED: LACTULOSE 20 GM/30 ML UDC (FOR ORAL USE ONLY) PO ONE ×2 (14:40→17:30)
--- NOTE | 2016-05-25 14:42 | PN ---
Teaching Attending Note Name of Resident: Angelica Sneed ATTENDING PHYSICIAN STATEMENT I saw and evaluated the patient. I reviewed the resident's note and discussed the case with the resident. I agree with the resident's findings and plan as documented. SUBJECTIVE: no fever or chills, feels that his leg is better. denies any chest pain of palpitations . pt reports bleeding from rectum for months now . blood is BRBP mixed and sometimes black covering the stool . no abd pain , no NSAIds use . constipated and has pain in rectum with BMs . OBJECTIVE: NAD. AAOx3 HEENT: no facial droop . MMM CV : RRR, no Murmurs appreciated Lungs : CATB ext: no edema or erythema over L leg . R leg with erythema , increased warmth and 1x1 cm ulcer on R butler, erythema improved fro m yesterday . DP 2+ b/l . track arzate and scarring on thighs but no erythema . no LAP in groins . on nails 2 areas of pin [place] bleed on nail beds Skin : no rash. track lines as above. Rectal exam with Nl hair distribution , external no n bleeding hemorrhoids. no masses were felt in rectum . tenderness in rectum during exam. OB positive . blood is seen on underwear . Assessment/Plan: 55 y/o man with h/o IV drug use , who presented with fever and RLE erythema and edema , he was found to have cellulitis of the R leg 1- Sepsis due to cellulitis of R the R LE : improved - Blood cx Negative to date - follow echo, done this Am. if echo shows no vegetations , CHARITY might be needed -Cont Ceftazidime and and vanco . 2- Lower GI bleed : likely internal hemorrhoidal bleed due to chronic constipation . Other causes like colon cancer , and diverticular bleed in picture but less likely . Rectal exam confirm + OB . Never had colonoscopy. Although , he reported black stool on occasions , upper GI bleed is very unlikely - Treat constipation with lactulose , miralax and senna/colace - Will need colonoscopy eventually. No urgency . - GI consult 3- Microcytic anemia : iron studies with evidence of iron def. Likely from chronic GI bleed - Needs GI w/u - Will initiate iron pills on dc 4-IV drug use , opioid dependence - cont mehtadone taper Dispo : [facility] tele
[2016-05-25] MEDS ORDERED: NAPH,MB-DB/K PH,MBDB POWDER PACKET PO ONE ×2 (15:05→17:30)
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
[2016-05-25] MEDS: DEXTROSE 5%-0.45% SALINE 1,000 ML IV SCH (17:27)
[2016-05-25] MEDS: POLYETHYLENE GLYCOL 3350 119 GM BTL PO SCH (17:28)
[2016-05-25] MEDS ORDERED: PT OWN MED DRAWER 7, Y5N ONE (18:08)
--- NOTE | 2016-05-25 19:03 | CONSULT ---
Consult - text type - Consultation Consultation Note: Cardiology Echocardiogram pending to evaluate for valvular disease
[2016-05-25] MEDS: SENNOSIDES/DOCUSATE COMBO (SENNA PLUS) TABLET (UD) PO SCH (22:14)
[2016-05-26] MEDS ORDERED: PT OWN MED DRAWER 7, Y5N ONE ×3 (01:13→15:01)
[2016-05-26] MEDS: VANCOMYCIN 1,500 MG in DEXTROSE 5%-WATER - 500 ML IVPB SCH ×3 (01:41→15:38)
[2016-05-26] MEDS: DEXTROSE 5%-0.45% SALINE 1,000 ML IV SCH (01:42)
[2016-05-26] MEDS: CEFTAZIDIME PENTAHYDRATE 2 GM in DEXTROSE 5%-WATER - 100 ML IVPB SCH ×3 (04:36→23:07)
[2016-05-26 07:32] LABS: BASOPHIL 0.8 % (0-2.0); EOSINOPHIL 0.9 % (0-4.5); MCH 21.2 pg (25.7-33.7); MCHC 31.6 g/dl (32.0-35.9); MEAN CELL VOLUME 67.2 fl (80-96); MEAN PLT VOLUME 7.5 fl (7.5-11.1); PLATELET COUNT 302 K/MM3 (134-434); RDW 18.8 % (11.9-15.9); WHITE BLOOD COUNT 7.4 K/mm3 (4.0-10.0)
[2016-05-26 07:45] LABS: INR 1.26 (0.82-1.09); PROTHROMBIN TIME (PATIENT) 13.9 SEC (9.98-11.88)
[2016-05-26 08:09] LABS: TRANSFERRIN 266 mg/dL (200-370)
[2016-05-26 08:10] LABS: CALCIUM 8.5 mg/dL (8.5-10.1); CREATININE 0.6 mg/dL (0.7-1.3)
[2016-05-26] MEDS: POLYETHYLENE GLYCOL 3350 119 GM BTL PO SCH (09:00)
[2016-05-26] MEDS: SENNOSIDES/DOCUSATE COMBO (SENNA PLUS) TABLET (UD) PO SCH (09:00)
[2016-05-26] MEDS ORDERED: METHADONE HCL 5 MG TABLET PO ONE ×2 (10:00)
[2016-05-26] MEDS ORDERED: DOCUSATE SODIUM 100 MG CAPSULE (FP) PO SCH (10:00)
[2016-05-26] MEDS ORDERED: PROPOFOL 20 ML ONE (10:42)
--- NOTE | 2016-05-26 11:32 | PN ---
Progress Note (short form) - Note Progress Note: EGD complete. Procedure report left in front of physical chart and to be scanned into MarginLeft
--- NOTE | 2016-05-26 13:38 | MSN ---
Progress Note (SOAP) - Subjective Chief Complaint: right leg swelling History of Present Illness: 55 y/o male with pmhx of heroin abuse and asthma who presents with left leg swelling since Wednesday. He has been clinically improving with no fevers, the leg is decreasing in swelling and warmth. Today he is complaining of constipation. He says he had two dark stools yesterday but had none so far today. He is in some discomfort because of the inability to pass bowel movements - Current Medications Current Medications: Active Medications Bisacodyl (Dulcolax -) 20 mg PO ONCE ONE Stop: 05/26/16 14:01 Ceftazidime 2 gm/ Dextrose 100 mls @ 200 mls/hr IVPB Q8H-IV KYLER PRN Reason: Protocol Last Admin: 05/26/16 12:19 Dose: 200 mls/hr Vancomycin HCl 1,500 mg/ (Dextrose) 500 mls @ 250 mls/hr IVPB BID@0100,1300 [facility] Last Admin: 05/26/16 01:41 Dose: 250 mls/hr Dextrose/Sodium Chloride (D5-1/2ns -) 1,000 mls @ 125 mls/hr IV ASDIR [facility] Last Admin: 05/26/16 01:42 Dose: 125 mls/hr Methadone HCl (Dolophine -) 10 mg PO ONCE ONE Stop: 05/27/16 10:01 Methadone HCl (Dolophine -) 5 mg PO ONCE@0600 ONE Stop: 05/28/16 06:01 Pantoprazole Sodium (Protonix -) 40 mg PO DAILY [facility] Polyethylene Glycol/Electrolytes (Golytely Solution) 4,000 ml PO ONCE ONE Stop: 05/26/16 15:01 Sodium Phosphate (Fleet Adult Rectal Enema -) 133 ml OR ONCE ONE Stop: 05/27/16 06:01 - Objective Vital Signs: Vital Signs Temperature 98.2 F 05/26/16 12:15 Pulse Rate 88 05/26/16 12:15 Respiratory Rate 20 05/26/16 12:15 Blood Pressure 163/86 05/26/16 12:15 O2 Sat by Pulse Oximetry (%) 95 05/26/16 12:15 Constitutional: Yes: Well Nourished, No Distress, Calm Eyes: Yes: WNL, Conjunctiva Clear, EOM Intact, PERRL, Other (No bolaños spots noted on fundoscopic exam) Integumentary: Yes: Other (scarring on arms and inner thigh ) Neurological: Yes: WNL, Alert, Oriented Labs Lab Results: CBC, BMP 05/26/16 05:35 05/26/16 05:35 Assessment/Plan 55 y/o male with pmhx of heroin abuse and asthma who presents with left leg swelling since Wednesday. He has been clinically improving with no fevers, the leg is decreasing in swelling and warmth Sepsis, possibly endocarditis due to cellulitis: -continue Ceftazidime and Vanomycin-currently on day 3-vanco trough at 7.8 on and 10.4 on 05/26but inaccurate. will recheck after colonoscopy -Blood cultures negative 72 hours- IE very unlikely -urine culture negative -UA negative -tetanus toxoid still pending-tetanus given -ECHO done 05/25 showing mild tricuspid, mitral and aortic regurgitation but no vegetations-consult cardiology for TTE. -GI consultation- colonoscopy explained to patient and will have procedure tomorrow -continue NS GI bleed -internal hemorrhoids on rectal -most likely lower GI bleed but cannot rule out upper -consult GI-No source for GI bleed found on EGD but gastritis is found- colonoscopy scheduled for tomorrow- 8 week trial of pantopazole reccommended by GI Constipation -treat with lactulose, miralax, senna-constipation will increase with iron suppliments Microcytic anemia: -Iron deficiency -stool occult blood positive -Iron supplimentation following colonscopy tomorrow IV drug abuse: -Methadone taper started Hypophospatemia -Replete and recheck tomorrow because bmp not done today DVT PPX: -SCDs Rehab -Patient wishes to enter rehab program but says no one will accept his insurance. speak with social work/case operator about assisting him in finding a rehab clinic F/E/N: NS/No changes/Regular
[2016-05-26] MEDS ORDERED: NAPH,MB-DB/K PH,MBDB POWDER PACKET PO ONE (14:00)
[2016-05-26] MEDS ORDERED: BISACODYL 5 MG TABLET.DR (FP) PO ONE (14:00)
[2016-05-26] MEDS: PANTOPRAZOLE 40 MG TABLET (FP) PO SCH (14:29)
--- NOTE | 2016-05-26 14:52 | PN ---
Physical Exam: SUBJECTIVE: Patient seen and examined. He doesn't have any complaints today. He denies abdominal pain, N/V, diarrhea, leg pain, chest pain, palpitations. He had EGD procedure today and will have colonoscopy tomorrow. OBJECTIVE: Vital Signs Period Temp Pulse Resp BP Sys/Stearns Pulse Ox Last 24 Hr 98.2 F-99 F 20-98 16-20 140-163/61-87 94-99 GENERAL: The patient is awake, alert, and fully oriented, in no acute distress. HEAD: Normal with no signs of trauma. EYES: extraocular movements intact, conjunctiva clear, no ecchymoses or petechiae. ENT: oropharynx clear without exudates, petechiae, moist mucous membranes, dental caries. NECK: Trachea midline, supple. LUNGS: Breath sounds equal, clear to auscultation bilaterally, no wheezes, no crackles, no accessory muscle use. HEART: Regular rate and rhythm, S1, S2 without murmur, rub or gallop. ABDOMEN: Obese, soft, nontender, nondistended, normoactive bowel sounds, no guarding, no rebound, no hepatosplenomegaly, no masses. EXTREMITIES:no edema, mild redness in RLE up to the knee, warm, small oval wound , draining clear liquid. NEUROLOGICAL: Normal speech, gait not observed. PSYCH: Normal mood, normal affect. SKIN: Warm, dry, normal turgor, track arzate in upper and lower extremities visible. Laboratory Results - last 24 hr 05/24/16 05/26/16 05/26/16 05:35 05:35 05:35 WBC RBC Hgb Hct MCV MCHC RDW Plt Count MPV Neutrophils % Lymphocytes % Monocytes % Eosinophils % Basophils % ESR 60 H INR Sodium 141 Potassium 3.7 Chloride 107 Carbon Dioxide 24 Anion Gap 10 BUN 7 D Creatinine 0.6 L D Random Glucose 125 H Calcium 8.5 Transferrin 266 Vancomycin Trough 05/26/16 05/26/16 05/26/16 05:35 05:35 12:25 WBC 7.4 D RBC 4.07 Hgb 8.6 L Hct 27.3 L MCV 67.2 L MCHC 31.6 L RDW 18.8 H Plt Count 302 D MPV 7.5 Neutrophils % 61.0 D Lymphocytes % 31.5 D Monocytes % 5.8 Eosinophils % 0.9 D Basophils % 0.8 ESR INR 1.26 H Sodium Potassium Chloride Carbon Dioxide Anion Gap BUN Creatinine Random Glucose Calcium Transferrin Vancomycin Trough 10.135 H D Active Medications Generic Name Dose Route Start Last Admin Trade Name Boris PRN Reason Stop Dose Admin Ceftazidime 2 gm/ Dextrose 100 mls @ 200 mls/hr 05/25/16 18:00 05/26/16 12:19 IVPB 200 mls/hr Q8H-IV KYLER Administration Protocol Vancomycin HCl 1,500 mg/ 500 mls @ 250 mls/hr 05/26/16 01:00 05/26/16 01:41 Dextrose IVPB 250 mls/hr BID@0100,1300 KYLER Administration Dextrose/Sodium Chloride 1,000 mls @ 125 mls/hr 05/26/16 00:01 05/26/16 01:42 D5-1/2ns - IV 125 mls/hr ASDIR KYLER Administration Methadone HCl 10 mg 05/27/16 10:00 Dolophine - PO 05/27/16 10:01 ONCE ONE Methadone HCl 5 mg 05/28/16 06:00 Dolophine - PO 05/28/16 06:01 ONCE@0600 ONE Pantoprazole Sodium 40 mg 05/26/16 11:45 05/26/16 14:29 Protonix - PO 40 mg DAILY KYLER Administration Polyethylene Glycol/Electrolytes 4,000 ml 05/26/16 15:00 Golytely Solution PO 05/26/16 15:01 ONCE ONE Sodium Phosphate 133 ml 05/27/16 06:00 Fleet Adult Rectal Enema - AR 05/27/16 06:01 ONCE ONE EKG:NSR, 1st degree AV block, incomplete RBBB ASSESSMENT/PLAN: 55 year old male with a significant PMH of IV heroin abuse, anxiety comes to the hospital complaining of fever that started last night. He measured that at home and was 103-104. Additionally he noticed that his right lower extremity is red and swollen. He is admitted for sepsis, possibly endocarditis due to cellulitis. Sepsis due to cellulitis with possible endocarditis: -IV abx:Gentamycin and Vancomycin given in ED. -discussed with Dr. Montano and ordered Ceftizidime 2 g Q8h and Vanomycin 1.5 BID , today is day 4 -blood cultures 3 sets-negative -telemetry monitoring, transferred to [facility] surgery -ECHO done -f/u cardiology consultation -wound care, xeroform dressing -Tetanus shot Microcytic anemia: -iron studies done -no known baseline GI Bleeding: -EGD today and colonoscopy -external hemorrhoid visible, -rectal exam done, FOBT positive -GI consult Chronic constipation: -Colace qd -Lactulose -Miralax qd Hypophosphatemia: -Phos-NaK i bag today -will f/u labs tomorrow IV drug abuse; -Detox consultation -Methadone taper started DVT PPX: -SCDs -ambulating GI PPX: no recommendation F/E/N: NS/No changes/Regular Disposition: Med surg Problem List - Problems (1) Cellulitis and abscess of leg, except foot Code(s): L02.419 - CUTANEOUS ABSCESS OF LIMB, UNSPECIFIED L03.119 - CELLULITIS OF UNSPECIFIED PART OF LIMB (2) Endocarditis, valve unspecified Code(s): I38 - ENDOCARDITIS, VALVE UNSPECIFIED Qualifiers: Endocarditis type: infective Infective endocarditis organism: bacterial Chronicity: acute Qualified Code(s): I33.0 - Acute and subacute infective endocarditis (3) Sepsis Code(s): A41.9 - SEPSIS, UNSPECIFIED ORGANISM Qualifiers: Sepsis type: sepsis due to unspecified organism Qualified Code(s): A41.9 - Sepsis, unspecified organism Visit type - Emergency Visit Emergency Visit: Yes ED Registration Date: 05/23/16 Care time: The patient presented to the Emergency Department on the above date and was hospitalized for further evaluation of their emergent condition. - New Patient This patient is new to me today: No - Critical Care Critical Care patient: No
[2016-05-26] MEDS ORDERED: PEG3350/SOD SULF,BICARB,CL/KCL 4,000 ML SOLN.RECON PO ONE (15:00)
--- NOTE | 2016-05-26 15:42 | PN ---
Teaching Attending Note Name of Resident: Angelica Sneed ATTENDING PHYSICIAN STATEMENT I saw and evaluated the patient. I reviewed the resident's note and discussed the case with the resident. I agree with the resident's findings and plan as documented. SUBJECTIVE: no fever or chills , has no complaints . had BMs yesterday OBJECTIVE: NAD. AAOx3 HEENT: MMM CV : RRR, no Murmurs appreciated Lungs : CATB ext: no edema or erythema over L leg . improved R leg erythema , with clean superficial ulcer . DP 2+ b/l . track arzate and scarring on thighs but no erythema . no LAP in groins . on nails 2 areas of [place] bleed on nail beds Skin : no rash. track lines as above. Assessment/Plan: 55 y/o man with h/o IV drug use , who presented with fever and RLE erythema and edema , he was found to have cellulitis of the R leg 1- Sepsis due to cellulitis of R LE : much improved - Blood cx Negative to date - echo done yesterday, no report , cardio lab called . - vanco level today is not a true trough . will cont and obtain trough before 4th dose - cont ceftazidime . until endocarditis is ruled out 2- Lower GI bleed : likely internal hemorrhoidal bleed due to chronic constipation . - EGD today due to reported melena - colonoscopy tomorrow - start iron supplements after colonosopy - bowel regimen 3- Iron def anemia: 2/2 chronic GI bleed - Will initiate iron pills after colonoscopy 4-IV drug use , opioid dependence - cont mehtadone taper . interested in rehab Dispo : HLOC after dc he is interested in drug rehab
[2016-05-26] MEDS ORDERED: SODIUM CHLORIDE 1,000 ML IV SCH (16:00)
--- NOTE | 2016-05-26 18:18 | PN ---
Progress Note, Physician History of Present Illness: OOB in chair No c/o leg pain No fever/ chills Temps down, WBC improved Tolerating antibiotics - Current Medication List Current Medications: Active Medications Ceftazidime 2 gm/ Dextrose 100 mls @ 200 mls/hr IVPB Q8H-IV KYLER PRN Reason: Protocol Last Admin: 05/26/16 12:19 Dose: 200 mls/hr Vancomycin HCl 1,500 mg/ (Dextrose) 500 mls @ 250 mls/hr IVPB BID@0100,1300 [facility] Last Admin: 05/26/16 15:38 Dose: 250 mls/hr Sodium Chloride (Normal Saline -) 1,000 mls @ 75 mls/hr IV ASDIR [facility] Stop: 05/27/16 11:59 Methadone HCl (Dolophine -) 10 mg PO ONCE ONE Stop: 05/27/16 10:01 Methadone HCl (Dolophine -) 5 mg PO ONCE@0600 ONE Stop: 05/28/16 06:01 Pantoprazole Sodium (Protonix -) 40 mg PO DAILY [facility] Last Admin: 05/26/16 14:29 Dose: 40 mg Sodium Phosphate (Fleet Adult Rectal Enema -) 133 ml FL ONCE ONE Stop: 05/27/16 06:01 - Objective Vital Signs: Vital Signs Temperature 98.8 F 05/26/16 13:25 Pulse Rate 87 05/26/16 13:25 Respiratory Rate 20 05/26/16 13:25 Blood Pressure 149/87 05/26/16 13:25 O2 Sat by Pulse Oximetry (%) 95 05/26/16 12:15 Constitutional: Yes: No Distress Cardiovascular: Yes: Regular Rate and Rhythm, S1, S2 Respiratory: Yes: CTA Bilaterally Gastrointestinal: Yes: Normal Bowel Sounds, Soft Extremities: Yes: Other (+ erythema/swelling R LE) Labs: CBC, BMP 05/26/16 05:35 05/26/16 05:35 INR, PTT INR 1.26 (0.82-1.09) H 05/26/16 05:35 Assessment/Plan Cellulitis R LE Fever/ leukocytosis-improved PCN allergy Continue vanco/ ceftazidime Elevation LE
--- NOTE | 2016-05-26 19:02 | CONSULT ---
Consult - text type - Consultation Consultation Note: Cardiology no cardiac symptoms PE normal cardiopulmonary exam abdomen soft RLE cellulitis Impression: Mild HTN Echocardiogram unremarkable, no evidence of endocarditis Stable Rec: Optimize BP will sign off consult if needed
[2016-05-26] MEDS: amLODIPine BESYLATE 2.5 MG TABLET (FP) PO SCH (20:30)
[2016-05-27] MEDS ORDERED: PT OWN MED DRAWER 7, Y5N ONE ×3 (06:31→16:51)
[2016-05-27] MEDS: SODIUM PHOSPHATE/NA BIPHOS 133 ML ENEMA PR ONE ×2 (06:35→17:08)
[2016-05-27] MEDS: CEFTAZIDIME PENTAHYDRATE 2 GM in DEXTROSE 5%-WATER - 100 ML IVPB SCH ×3 (06:35→17:15)
[2016-05-27] MEDS ORDERED: METHADONE HCL 10 MG TABLET PO ONE ×2 (10:00)
[2016-05-27] MEDS: amLODIPine BESYLATE 2.5 MG TABLET (FP) PO SCH (10:09)
[2016-05-27] MEDS: PANTOPRAZOLE 40 MG TABLET (FP) PO SCH (10:09)
--- NOTE | 2016-05-27 11:48 | MSN ---
Progress Note (SOAP) - Subjective History of Present Illness: 55 y/o male with pmhx of heroin abuse and asthma who presents with left leg swelling since Wednesday. He has been clinically improving with no fevers, the leg is decreasing in swelling and warmth. Today he his having a colonscopy and he said he drank water, the fluids they gave him to prep for the procedure and two spoonfuls of jello. He says he had one bowel movement and saw a small amount of bright red blood in the toilet. He states that he no longer wants to go to rehab and would rather join a support group and manage his addiction on his own. He states he has been taking 60mg morphine sulfate a day and plans to start 30mg . He has been taking this during his time in the hospital as well as the methadone he has been prescribed while in the hospital. He says he does not want to be on methadone. He denies any fevers, chills, chest pain or stomach aches. - Current Medications Current Medications: Active Medications Amlodipine Besylate (Norvasc -) 2.5 mg PO DAILY [facility] Last Admin: 05/27/16 10:09 Dose: 2.5 mg Ceftazidime 2 gm/ Dextrose 100 mls @ 200 mls/hr IVPB Q8H-IV KYLER PRN Reason: Protocol Last Admin: 05/27/16 10:23 Dose: 200 mls/hr Vancomycin HCl 1,500 mg/ (Dextrose) 500 mls @ 250 mls/hr IVPB BID@0100,1300 [facility] Last Admin: 05/26/16 15:38 Dose: 250 mls/hr Sodium Chloride (Normal Saline -) 1,000 mls @ 75 mls/hr IV ASDIR [facility] Stop: 05/27/16 11:59 Last Admin: 05/26/16 18:36 Dose: 75 mls/hr Methadone HCl (Dolophine -) 5 mg PO ONCE@0600 ONE Stop: 05/28/16 06:01 Pantoprazole Sodium (Protonix -) 40 mg PO DAILY [facility] Last Admin: 05/27/16 10:09 Dose: 40 mg - Objective Vital Signs: Vital Signs Temperature 98.8 F 05/27/16 07:43 Pulse Rate 98 H 05/27/16 07:43 Respiratory Rate 20 05/27/16 07:43 Blood Pressure 140/73 05/27/16 07:43 O2 Sat by Pulse Oximetry (%) 95 05/26/16 21:00 Constitutional: Yes: Well Nourished, No Distress, Calm Cardiovascular: Yes: WNL, Regular Rate and Rhythm, S1, S2 Respiratory: Yes: WNL, Regular, CTA Bilaterally Gastrointestinal: Yes: WNL, Normal Bowel Sounds, Soft ...Rectal Exam: Yes: Guaiac Positive (05/25) Musculoskeletal: Yes: WNL Extremities: Yes: Other (three small petechiae on nail beds) Edema: No Integumentary: Yes: Erythema, Laceration, Other (scarring on thigh and arms ) Neurological: Yes: WNL, Alert, Oriented Psychiatric: Yes: WNL, Alert, Oriented Labs Lab Results: CBC, BMP 05/26/16 05:35 05/26/16 05:35 Assessment/Plan 55 y/o male with pmhx of heroin abuse and asthma who presents with left leg swelling since Wednesday. He has been clinically improving with no fevers, the leg is decreasing in swelling and warmth Sepsis, possibly endocarditis due to cellulitis: -continue Ceftazidime and Vanomycin-currently on day 4-vanco trough at 7.8 on and 10.4 on 05/26 but inaccurate. will recheck after colonoscopy -Blood cultures negative 96 hours- IE very unlikely -urine culture negative -UA negative -tetanus toxoid still pending-tetanus given -ECHO done 05/25 showing mild tricuspid, mitral and aortic regurgitation but no vegetations-consult cardiology for TTE. -Colonscopy done today. awaiting report -continue NS GI bleed -internal hemorrhoids on rectal -most likely lower GI bleed but cannot rule out upper -consult GI-No source for GI bleed found on EGD but gastritis is found- 8 week trial of pantopazole reccommended by GI-colonscopy done today Constipation -treat with lactulose, miralax, senna-constipation will increase with iron suppliments Microcytic anemia: -Iron deficiency -stool occult blood positive -Iron supplimentation following colonscopy today IV drug abuse: -Methadone taper started Hypophospatemia -recheck tomorrow because bmp not done DVT PPX: -SCDs Rehab -Patient says he would like to eneter a supoprt group and treat his addiction on his own with morphine he is getting outside. He has been taking them in the hospital with prescripted methadone. will contact social work and security to confiscate F/E/N: NS/No changes/Regular
--- NOTE | 2016-05-27 12:20 | PATH ---
Surgical Pathology Report Patient Name: DIANNE HAGAN [facility]. Rec. #: [id number] /Age/Gender: 1960 (Age: 55) / M Account: [id number] Location: [address] [place] [address]/[facility] Taken: 05/26/2016 Received: 05/26/2016 Reported: 05/27/2016 Physicians: Srikanth Dudley D.O. Specimen(s) Received A: BX DUODENUM B: BX DUODENAL BULB C: BX EROSIONS ANGULARIS D: BX ANTRUM/BODY Clinical History Anemia Gastritis, gastroduodenitis Final Diagnosis A. DUODENUM, BIOPSY: DUODENAL MUCOSA WITH FOCAL ACTIVE AND CHRONIC INFLAMMATION AND BIJAN'S GLANDS HYPERPLASIA. NO HISTOLOGIC EVIDENCE OF GLUTEN SENSITIVE ENTEROPATHY (CELIAC DISEASE). B. DUODENAL BULB, BIOPSY: DUODENAL MUCOSA WITH FOCAL ACTIVE AND CHRONIC INFLAMMATION AND BIJAN'S GLANDS HYPERPLASIA. NO HISTOLOGIC EVIDENCE OF GLUTEN SENSITIVE ENTEROPATHY (CELIAC DISEASE). C. STOMACH, ANGULARIS, EROSIONS, BIOPSY: GASTRIC ANTRAL MUCOSA WITH FOCALLY ACTIVE MARKED CHRONIC GASTRITIS AND REACTIVE GASTROPATHY WITH FOCAL SURFACE EROSION. IMMUNOSTAIN FOR H. PYLORI IS POSITIVE FOR ORGANISMS (SCATTERED ORGANISMS). D. STOMACH, ANTRUM/BODY, BIOPSY: GASTRIC MUCOSA WITH FOCALLY ACTIVE MODERATE TO MARKED CHRONIC GASTRITIS. IMMUNOSTAIN FOR H. PYLORI IS POSITIVE FOR ORGANISMS (SCATTERED ORGANISM). Electronically Signed Armani Coreas M.D. Gross Description A. Received in formalin, labeled "biopsy duodenum" are 2 crocker, irregular portions of soft tissue averaging 0.2 cm in greatest dimension. The specimens are submitted in toto in one cassette. B. Received in formalin, labeled "biopsy duodenal bulb" are 2 crocker, irregular portions of soft tissue measuring 0.2 and 0.3 cm in greatest dimension. The specimens are submitted in toto in one cassette. C. Received in formalin, labeled "biopsy erosions angularis" is a crocker, irregular portion of soft tissue measuring 0.5 cm in greatest dimension. The specimen is submitted in toto in one cassette. D. Received in formalin, labeled "biopsy antrum/body" are 2 crocker, irregular portions of soft tissue averaging 0.4 cm in greatest dimension. The specimens are submitted in toto in one cassette. 05/26/201605/26/2016
[2016-05-27] MEDS: VANCOMYCIN 1,500 MG in DEXTROSE 5%-WATER - 500 ML IVPB SCH (12:35)
[2016-05-27] MEDS ORDERED: LORazepam 1 MG TABLET PO PRN (13:58)
--- NOTE | 2016-05-27 14:06 | PN ---
Teaching Attending Note Name of Resident: Angelica Sneed ATTENDING PHYSICIAN STATEMENT I saw and evaluated the patient. I reviewed the resident's note and discussed the case with the resident. I agree with the resident's findings and plan as documented. SUBJECTIVE: Was called by the nursing supervisor purification since patient stated that he has other drugs with him and would like to take them storm.Ativan 1mg. OBJECTIVE: Vital Signs Temperature 98.8 F 05/27/16 07:43 Pulse Rate 98 H 05/27/16 07:43 Respiratory Rate 20 05/27/16 07:43 Blood Pressure 140/73 05/27/16 07:43 O2 Sat by Pulse Oximetry (%) 95 05/26/16 21:00 GENERAL: The patient is awake, alert, and fully oriented, in no acute distress. HEAD: Normal with no signs of trauma. EYES: extraocular movements intact, conjunctiva clear, no ecchymoses or petechiae. ENT: oropharynx clear without exudates, moist mucous membranes, dental caries. NECK: Trachea midline, supple. LUNGS: Breath sounds equal, clear to auscultation bilaterally, no wheezes, no crackles, no accessory muscle use. HEART: Regular rate and rhythm, S1, S2 without murmur, rub or gallop. ABDOMEN: Obese, soft, nontender, nondistended, normoactive bowel sounds, no guarding, no rebound, no hepatosplenomegaly, no masses. EXTREMITIES:no edema, mild redness in RLE up to the knee, warm, small oval wound , draining clear liquid. NEUROLOGICAL: Normal speech, gait not observed. PSYCH: Normal mood, normal affect. SKIN: Warm, dry, normal turgor, track arzate in upper and lower extremities visible. CBCD WBC 7.4 K/mm3 (4.0-10.0) D 05/26/16 05:35 RBC 4.07 M/mm3 (4.00-5.60) 05/26/16 05:35 Hgb 8.6 GM/dL (11.7-16.9) L 05/26/16 05:35 Hct 27.3 % (35.4-49) L 05/26/16 05:35 MCV 67.2 fl (80-96) L 05/26/16 05:35 MCHC 31.6 g/dl (32.0-35.9) L 05/26/16 05:35 RDW 18.8 % (11.9-15.9) H 05/26/16 05:35 Plt Count 302 K/MM3 (134-434) D 05/26/16 05:35 MPV 7.5 fl (7.5-11.1) 05/26/16 05:35 CMP Sodium 141 mmol/L (136-145) 05/26/16 05:35 Potassium 3.7 mmol/L (3.5-5.1) 05/26/16 05:35 Chloride 107 mmol/L (98-107) 05/26/16 05:35 Carbon Dioxide 24 mmol/L (21-32) 05/26/16 05:35 Anion Gap 10 (8-16) 05/26/16 05:35 BUN 7 mg/dL (7-18) D 05/26/16 05:35 Creatinine 0.6 mg/dL (0.7-1.3) L D 05/26/16 05:35 Creat Clearance w eGFR > 60 (>60) 05/23/16 07:05 Random Glucose 125 mg/dL (74-106) H 05/26/16 05:35 Calcium 8.5 mg/dL (8.5-10.1) 05/26/16 05:35 Total Bilirubin 0.5 mg/dL (0.2-1.0) 05/23/16 07:05 AST 9 U/L (15-37) L 05/23/16 07:05 ALT 13 U/L (12-78) 05/23/16 07:05 Alkaline Phosphatase 73 U/L (45-117) 05/23/16 07:05 Total Protein 7.1 g/dl (6.4-8.2) 05/23/16 07:05 Albumin 3.2 g/dl (3.4-5.0) L 05/23/16 07:05 CARDIAC ENZYMES Creatine Kinase 50 IU/L (39-308) 05/23/16 07:05 Troponin I < 0.02 ng/ml (0.00-0.05) 05/23/16 07:05 Current Medications Generic Name Dose Route Start Last Admin Trade Name Freq PRN Reason Stop Dose Admin Amlodipine Besylate 2.5 mg 05/26/16 19:15 05/27/16 10:09 Norvasc - PO 2.5 mg DAILY KYLER Administration Ceftazidime 2 gm/ Dextrose 100 mls @ 200 mls/hr 05/25/16 18:00 05/27/16 10:23 IVPB 200 mls/hr Q8H-IV KYLER Administration Protocol Vancomycin HCl 1,500 mg/ 500 mls @ 250 mls/hr 05/26/16 01:00 05/27/16 12:35 Dextrose IVPB 250 mls/hr BID@0100,1300 KYLER Administration Lorazepam 1 mg 05/27/16 13:58 Ativan - PO BID PRN ANXIETY Methadone HCl 5 mg 05/28/16 06:00 Dolophine - PO 05/28/16 06:01 ONCE@0600 ONE Pantoprazole Sodium 40 mg 05/26/16 11:45 05/27/16 10:09 Protonix - PO 40 mg DAILY KYLER Administration Home Medications Medication Instructions Recorded NK [No Known Home Medication] 05/23/16 ASSESSMENT AND PLAN: 55 y/o man with h/o IV drug use , who presented with fever and RLE erythema and edema , he was found to have cellulitis of the R leg # s/p acute Sepsis due to cellulitis of R LE : continue IV antibiotics for now. # Lower GI bleed : likely internal hemorrhoidal bleed due to chronic constipation , was not able to scope since needed to drink Golytely - EGD today due to reported melena , Going for colonoscopy tomorrow #Iron def anemia: 2/2 chronic GI bleed Will initiate iron pills after colonoscopy # IVDU , opioid dependence cont mehtadone taper discussed with Dr.Pierre Pryor . interested in rehab DVT Px; Early ambulation
--- NOTE | 2016-05-27 15:53 | PN ---
Physical Exam: SUBJECTIVE: Patient seen and examined. He doesn't have any complaints today. He states that he takes Morphine PO everyday and doesn't want to go to rehab. He denies leg pain,N/V, fever, chills. Scheduled for colonoscopy today. OBJECTIVE: Vital Signs Period Temp Pulse Resp BP Sys/Stearns Pulse Ox Last 24 Hr 98.4 F-98.8 F 78-98 18-20 140-157/70-90 95 GENERAL: The patient is awake, alert, and fully oriented, in no acute distress. HEAD: Normal with no signs of trauma. EYES: extraocular movements intact, conjunctiva clear, no ecchymoses or petechiae. ENT: oropharynx clear without exudates, petechiae, moist mucous membranes, dental caries. NECK: Trachea midline, supple. LUNGS: Breath sounds equal, clear to auscultation bilaterally, no wheezes, no crackles, no accessory muscle use. HEART: Regular rate and rhythm, S1, S2 without murmur, rub or gallop. ABDOMEN: Obese, soft, nontender, nondistended, normoactive bowel sounds, no guarding, no rebound, no hepatosplenomegaly, no masses. EXTREMITIES:no edema, mild redness in RLE up to the knee, warm, small oval wound , draining clear liquid. NEUROLOGICAL: Normal speech, gait not observed. PSYCH: Normal mood, normal affect. SKIN: Warm, dry, normal turgor, track arzate in upper and lower extremities visible. Active Medications Generic Name Dose Route Start Last Admin Trade Name Freq PRN Reason Stop Dose Admin Amlodipine Besylate 2.5 mg 05/26/16 19:15 05/27/16 10:09 Norvasc - PO 2.5 mg DAILY KYLER Administration Bisacodyl 20 mg 05/27/16 15:50 Dulcolax - PO 05/27/16 15:51 ONCE ONE Ceftazidime 2 gm/ Dextrose 100 mls @ 200 mls/hr 05/25/16 18:00 05/27/16 10:23 IVPB 200 mls/hr Q8H-IV KYLER Administration Protocol Vancomycin HCl 1,500 mg/ 500 mls @ 250 mls/hr 05/26/16 01:00 05/27/16 12:35 Dextrose IVPB 250 mls/hr BID@0100,1300 KYLER Administration Lorazepam 1 mg 05/27/16 13:58 Ativan - PO BID PRN ANXIETY Methadone HCl 5 mg 05/28/16 06:00 Dolophine - PO 05/28/16 06:01 ONCE@0600 ONE Pantoprazole Sodium 40 mg 05/26/16 11:45 05/27/16 10:09 Protonix - PO 40 mg DAILY KYLER Administration Sodium Phosphate 133 ml 05/28/16 06:00 Fleet Adult Rectal Enema - SD 05/28/16 06:01 ONCE ONE EKG:NSR, 1st degree AV block, incomplete RBBB ASSESSMENT/PLAN: 55 year old male with a significant PMH of IV heroin abuse, anxiety comes to the hospital complaining of fever that started last night. He measured that at home and was 103-104. Additionally he noticed that his right lower extremity is red and swollen. He is admitted for sepsis, possibly endocarditis due to cellulitis. Sepsis due to cellulitis with possible endocarditis: -IV abx:Gentamycin and Vancomycin given in ED. -cont. Ceftizidime 2 g Q8h and Vanomycin 1.5 BID, today is day 5 -blood cultures 3 sets-negative -telemetry monitoring, transferred to med surgery -ECHO done-nl, no more testing recommended by formula weigher -wound care, xeroform dressing -Tetanus shot Microcytic anemia: -iron studies done -no known baseline -will give iron supplementation GI Bleeding: -EGD report reviewed and colonoscopy scheduled for tomorrow -rectal exam done, FOBT positive -f/u GI recommendations Chronic constipation: -enema and Dulcolax Hypophosphatemia: -repleted IV drug abuse; -Detox consultation -Methadone taper DVT PPX: -SCDs -ambulating GI PPX: Pantoprazole F/E/N: NS/No changes/NPO after midnight Disposition: Med surg, colonoscopy tomorrow Problem List - Problems (1) Cellulitis and abscess of leg, except foot Code(s): L02.419 - CUTANEOUS ABSCESS OF LIMB, UNSPECIFIED L03.119 - CELLULITIS OF UNSPECIFIED PART OF LIMB (2) Endocarditis, valve unspecified Code(s): I38 - ENDOCARDITIS, VALVE UNSPECIFIED Qualifiers: Endocarditis type: infective Infective endocarditis organism: bacterial Chronicity: acute Qualified Code(s): I33.0 - Acute and subacute infective endocarditis (3) Sepsis Code(s): A41.9 - SEPSIS, UNSPECIFIED ORGANISM Qualifiers: Sepsis type: sepsis due to unspecified organism Qualified Code(s): A41.9 - Sepsis, unspecified organism Visit type - Emergency Visit Emergency Visit: Yes ED Registration Date: 05/23/16 Care time: The patient presented to the Emergency Department on the above date and was hospitalized for further evaluation of their emergent condition. - New Patient This patient is new to me today: No - Critical Care Critical Care patient: No - Discharge Referral Referred to [facility] Med P.C.: No
--- NOTE | 2016-05-27 15:54 | PN ---
Progress Note (short form) - Note Progress Note: Patient found to have xanax and extended release morphine in his belongings today Drank a minimal amount of golytely yesterday because "it tasted like sea water" I explained to mr. Mark that given his history of constipation and opiate abuse / methadone use, bowel preparation should ideally be performed using high volume bowel preparation such as golteley. I explained that even after a high volume bowel prep he may not be clean enough. He agreed to try again NPO after midnight for possible colonoscopy fleet enema in AM
[2016-05-27] MEDS ORDERED: BISACODYL 5 MG TABLET.DR (FP) PO ONE (16:30)
[2016-05-27] MEDS ORDERED: ACETAMINOPHEN 325 MG TABLET (FP) PO PRN (17:42)
[2016-05-27 19:09] VITALS: BP 171/91; PULSE 94; TEMP 98
[2016-05-28] MEDS ORDERED: METHADONE HCL 5 MG TABLET PO ONE ×2 (06:00)
[2016-05-28] MEDS ORDERED: SODIUM PHOSPHATE/NA BIPHOS 133 ML ENEMA PR ONE (06:00)
--- NOTE | 2016-05-28 17:30 | DS ---
Physical Exam: SUBJECTIVE: Patient seen and examined. He is doesn't have any complaints. He denies leg pain, chest pain, SOB, fever, chills. OBJECTIVE: Vital Signs Period Temp Pulse Resp BP Sys/Stearns Pulse Ox Last 24 Hr 98.0 F 94 20 171/91 PHYSICAL EXAM GENERAL: The patient is awake, alert, and fully oriented, in no acute distress. HEAD: Normal with no signs of trauma. EYES: extraocular movements intact, conjunctiva clear, no ecchymoses or petechiae. ENT: oropharynx clear without exudates, petechiae, moist mucous membranes, dental caries. NECK: Trachea midline, supple. LUNGS: Breath sounds equal, clear to auscultation bilaterally, no wheezes, no crackles, no accessory muscle use. HEART: Regular rate and rhythm, S1, S2 without murmur, rub or gallop. ABDOMEN: Obese, soft, nontender, nondistended, normoactive bowel sounds, no guarding, no rebound, no hepatosplenomegaly, no masses. EXTREMITIES:no edema, mild redness in RLE up to the knee. NEUROLOGICAL: Normal speech, gait not observed. PSYCH: Normal mood, normal affect. SKIN: Warm, dry, normal turgor, track arzate in upper and lower extremities visible. HOSPITAL COURSE: Date of Admission:05/23/16 Date of Discharge: 05/28/16 Minutes to complete discharge: 50 Discharge Summary Reason For Visit: SEPSIS, CELLULITIS/ABSCESS OF LOWER EXTREMITY Hospital Course: 55 year old male with a significant PMH of IV heroin abuse, anxiety comes to the hospital complaining of fever x1 day. He measured that at home and was 103- 104. Additionally he noticed that his right lower extremity is red and swollen. He is admitted for sepsis, possibly endocarditis due to cellulitis. Hospital course: Sepsis due to cellulitis with possible endocarditis: -IV abx:Gentamycin and Vancomycin given in ED, changed to Ceftizidime and Vanomycin, -blood cultures 3 sets-negative -telemetry monitoring, transferred to med surgery -ECHO done-nl, no more testing recommended by liner installer -wound care, xeroform dressing Microcytic anemia: -iron studies done -no known baseline GI Bleeding: -EGD done, scheduled for colonoscopy but pt didn't prepare, rescheduled for another day -rectal exam done, FOBT positive Chronic constipation: -enema and Dulcolax Hypophosphatemia: -repleted IV drug abuse; -Detox consultation given -Methadone taper given The pt clinically improved. He was scheduled to have colonoscopy. He admitted to have Morphine in his be longings. Security was called. He left AMA. Condition: Improved - Instructions Diet, Activity, Other Instructions: The pt left AMA. Disposition: AGAINST MEDICAL ADVICE - Home Medications Comprehensive Discharge Medication List: Ambulatory Orders NK [No Known Home Medication] 05/23/16 Problem List - Problems (1) Cellulitis and abscess of leg, except foot Code(s): L02.419 - CUTANEOUS ABSCESS OF LIMB, UNSPECIFIED L03.119 - CELLULITIS OF UNSPECIFIED PART OF LIMB (2) Endocarditis, valve unspecified Code(s): I38 - ENDOCARDITIS, VALVE UNSPECIFIED Qualifiers: Endocarditis type: infective Infective endocarditis organism: bacterial Chronicity: acute Qualified Code(s): I33.0 - Acute and subacute infective endocarditis (3) Sepsis Code(s): A41.9 - SEPSIS, UNSPECIFIED ORGANISM Qualifiers: Sepsis type: sepsis due to unspecified organism Qualified Code(s): A41.9 - Sepsis, unspecified organism This patient is new to me today: No Emergency Visit: Yes ED Registration Date: 05/23/16 Care time: The patient presented to the Emergency Department on the above date and was hospitalized for further evaluation of their emergent condition. Critical Care patient: No - Discharge Referral Referred to [facility] Med P.C.: No
== END 2016-05-27 19:45 | disposition left against medical advice (07) | DRG 872 ==
LOC: JER 06:24 → JERBED 10:21 → J4W 20:48 → J5S 05-25 14:07
PROVIDERS: ADMIT Internal Medicine; ATTEND Internal Medicine
PROC: 0DB98ZX Excision of Duodenum, Via Natural or Artificial Opening Endoscopic, Diagnostic (ICD-10-PCS; 2016-05-26)
PROC: 0DB68ZX Excision of Stomach, Via Natural or Artificial Opening Endoscopic, Diagnostic (ICD-10-PCS; principal; 2016-05-26 10:30)
DX: A41.9 Sepsis, unspecified organism (principal); L03.115 Cellulitis of right lower limb; F11.23 Opioid dependence with withdrawal; K92.2 Gastrointestinal hemorrhage, unspecified; R01.1 Cardiac murmur, unspecified; F19.90 Other psychoactive substance use, unspecified, uncomplicated; I44.0 Atrioventricular block, first degree; J45.909 Unspecified asthma, uncomplicated; I45.19 Other right bundle-branch block; E83.39 Other disorders of phosphorus metabolism; K64.8 Other hemorrhoids; D50.9 Iron deficiency anemia, unspecified; Z88.0 Allergy status to penicillin; R23.3 Spontaneous ecchymoses; K59.09 Other constipation
CPT/HCPCS: 36415; 71010-TC; 80048; 80053; 80307; 81003; 82550; 82728; 82803; 83540; 83550; 83605; 83735; 84100; 84466; 84484; 85025; 85610; 85651; 85730; 86317; 86850; 86900; 86901; 87040; 87086; 87389; 88305-TC; 93005; 93010; 93306-TC; 93971-TC; 99284-25; G0480

== ENCOUNTER 2020-09-11 20:48 | Inpatient (IN) | payer BC, MEDICARE, OTHER ==
[2020-09-11 22:25] LABS: BASO % 0.6 % (0-2.0); EOS % 4.1 % (0-4.5); HEMATOCRIT 29.4 % (35.4-49); HEMOGLOBIN 9.5 GM/dL (11.7-16.9); LYMPH % 22.9 % (8-40); MCHC 32.2 g/dl (32.0-35.9); MEAN CELL VOLUME 74.6 fl (80-96); MEAN PLT VOLUME 7.9 fl (7.5-11.1); MONO % 6.4 % (3.8-10.2); PLATELET COUNT 274 K/MM3 (134-434); RBC 3.94 M/mm3 (4.00-5.60); RDW 16.8 % (11.9-15.9); WHITE BLOOD COUNT 7.3 K/mm3 (4.0-10.0)
[2020-09-11 22:27] LABS: INR 1.03 (0.83-1.09); PROTHROMBIN TIME (PATIENT) 12.5 SEC (9.7-13.0)
[2020-09-11 22:30] LABS: ACTIVATED PTT 30.5 SECONDS (25.2-36.5)
[2020-09-11 22:43] LABS: CALCIUM 8.8 mg/dL (8.5-10.1)
[2020-09-11 22:44] LABS: ALBUMIN 3.4 g/dl (3.4-5.0); BLOOD UREA NITROGEN 9.4 mg/dL (7-18)
[2020-09-11 22:47] LABS: CREATININE 0.8 mg/dL (0.55-1.3)
[2020-09-11 22:48] LABS: BILIRUBIN,TOTAL 0.3 mg/dL (0.2-1); TOT PROT 7.2 g/dl (6.4-8.2)
[2020-09-11 23:25] LABS: ERYTHROCYTE SEDIMENTATION RATE 31 mm/hr (0-20)
[2020-09-12] MEDS ORDERED: VANCOMYCIN 1 GM in D5W (PRE-DOCKED) 1,000 MG/250 ML IVPB ONE ×2 (00:23→23:00)
[2020-09-12] MEDS ORDERED: CLINDAMYCIN 600MG PREMIX IVPB 600 MG/50 ML BAG IVPB ONE ×2 (00:25→00:41)
[2020-09-12] MEDS ORDERED: ACETAMINOPHEN 325 MG TABLET (FP) PO PRN (02:17)
[2020-09-12] MEDS ORDERED: SODIUM CHLORIDE 1,000 ML IV SCH (02:30)
[2020-09-12 05:42] VITALS: BMI 32.4
[2020-09-12] MEDS: INSULIN SLIDING SCALE (NOVOLOG) 1 VIAL SQ SCH ×4 (06:15→21:42)
[2020-09-12 07:58] LABS: PH,URINE 7.5 (5.0-8.0); URINE APPEARANCE CLEAR; URINE BILIRUBIN NEGATIVE (NEGATIVE); URINE COLOR YELLOW; URINE GLUCOSE (UA) NEGATIVE (NEGATIVE); URINE KETONE NEGATIVE (NEGATIVE); URINE LEUK ESTERASE NEGATIVE (NEGATIVE); URINE NITRITE NEGATIVE (NEGATIVE); URINE PROTEIN NEGATIVE (NEGATIVE); URINE UROBILINOGEN 0.2 mg/dL (0.2-1.0)
[2020-09-12 08:15] LABS: BASO % 0.5 % (0-2.0); EOS % 3.6 % (0-4.5); HEMATOCRIT 31.4 % (35.4-49); HEMOGLOBIN 10.1 GM/dL (11.7-16.9); LYMPH % 19.8 % (8-40); MCH 24.1 pg (25.7-33.7); MCHC 32.3 g/dl (32.0-35.9); MEAN CELL VOLUME 74.6 fl (80-96); MEAN PLT VOLUME 7.8 fl (7.5-11.1); MONO % 7.2 % (3.8-10.2); NEUT % 68.9 % (42.8-82.8); PLATELET COUNT 291 K/MM3 (134-434); RDW 16.5 % (11.9-15.9); WHITE BLOOD COUNT 7.2 K/mm3 (4.0-10.0)
[2020-09-12 08:28] LABS: ALBUMIN 3.4 g/dl (3.4-5.0); CALCIUM 8.8 mg/dL (8.5-10.1)
[2020-09-12 08:29] LABS: BLOOD UREA NITROGEN 8.2 mg/dL (7-18)
[2020-09-12 08:31] LABS: CREATININE 0.7 mg/dL (0.55-1.3)
[2020-09-12 08:32] LABS: BILIRUBIN,TOTAL 0.5 mg/dL (0.2-1); PHOSPHOROUS 3.7 mg/dL (2.5-4.9); TOT PROT 7.4 g/dl (6.4-8.2)
[2020-09-12] MEDS: ENOXAPARIN NA (PORCINE) 40 MG/0.4 ML DISP.SYRIN SQ SCH (09:31)
[2020-09-12] MEDS: MINERAL OIL/PET HY-PHL TOPICAL OINTMENT 454 GM JAR TP SCH ×2 (09:34→22:31)
[2020-09-12] MEDS ORDERED: AMMONIUM LACTATE 12% LOTION 225 GM BOTTLE TP PRN (11:11)
[2020-09-12] MEDS ORDERED: PT OWN MED DRAWER 7, Y5N ONE (11:35)
[2020-09-12] MEDS: VANCOMYCIN 1 GM in D5W (PRE-DOCKED) 1,000 MG/250 ML IVPB SCH (15:37)
[2020-09-12] MEDS ORDERED: DOCUSATE SODIUM 100 MG CAPSULE (FP) PO ONE (22:10)
[2020-09-12] MEDS ORDERED: VANCOMYCIN 1 GRAM (PRE-DOCKED) 1,000 MG/250 ML BAG IVPB SCH (23:00)
[2020-09-13] MEDS: INSULIN SLIDING SCALE (NOVOLOG) 1 VIAL SQ SCH ×4 (06:12→21:26)
[2020-09-13] MEDS ORDERED: INSULIN (NOVOLOG) ASPART 100 UNITS/ML 10ML VIAL ONE (07:07)
[2020-09-13 08:41] LABS: BASO % 0.4 % (0-2.0); EOS % 0.1 % (0-4.5); HEMATOCRIT 30.2 % (35.4-49); HEMOGLOBIN 9.6 GM/dL (11.7-16.9); LYMPH % 15.1 % (8-40); MCHC 31.9 g/dl (32.0-35.9); MEAN CELL VOLUME 75.2 fl (80-96); MEAN PLT VOLUME 8.2 fl (7.5-11.1); MONO % 5.9 % (3.8-10.2); NEUT % 78.5 % (42.8-82.8); PLATELET COUNT 281 K/MM3 (134-434); RBC 4.02 M/mm3 (4.00-5.60); RDW 16.5 % (11.9-15.9); WHITE BLOOD COUNT 7.4 K/mm3 (4.0-10.0)
[2020-09-13 09:01] LABS: ALBUMIN 3.3 g/dl (3.4-5.0); BLOOD UREA NITROGEN 9.4 mg/dL (7-18); CALCIUM 8.5 mg/dL (8.5-10.1); MAGNESIUM 2.2 mg/dL (1.8-2.4)
[2020-09-13 09:04] LABS: CREATININE 0.6 mg/dL (0.55-1.3)
[2020-09-13 09:05] LABS: PHOSPHOROUS 2.8 mg/dL (2.5-4.9)
[2020-09-13 09:06] LABS: TOT PROT 7.5 g/dl (6.4-8.2)
[2020-09-13] MEDS: ENOXAPARIN NA (PORCINE) 40 MG/0.4 ML DISP.SYRIN SQ SCH (09:38)
[2020-09-13] MEDS: MINERAL OIL/PET HY-PHL TOPICAL OINTMENT 454 GM JAR TP SCH ×2 (09:49→21:25)
[2020-09-13] MEDS: CALCIUM ACETATE/AL SULFATE TOP 1.9 GM/PACKET PACKET TP SCH (09:50)
[2020-09-13] MEDS ORDERED: LORazepam 0.5 MG TABLET PO ONE (12:06)
[2020-09-13] MEDS ORDERED: LORazepam 2 MG TABLET PO ONE (12:06)
[2020-09-13] MEDS: cloNIDine HCL 0.1 MG TABLET PO SCH ×3 (12:27→21:38)
[2020-09-13] MEDS ORDERED: PT OWN MED DRAWER 7, Y5N ONE ×2 (13:56→15:15)
[2020-09-13] MEDS: SILVER SULFADIAZINE 1% TOP CREAM 400 GM JAR TP SCH (14:32)
[2020-09-13] MEDS: VANCOMYCIN 1 GM in D5W (PRE-DOCKED) 1,000 MG/250 ML IVPB SCH (16:22)
[2020-09-14] MEDS: INSULIN SLIDING SCALE (NOVOLOG) 1 VIAL SQ SCH ×4 (06:20→21:10)
[2020-09-14 08:14] LABS: BASO % 0.3 % (0-2.0); EOS % 0.2 % (0-4.5); HEMATOCRIT 32.3 % (35.4-49); HEMOGLOBIN 10.4 GM/dL (11.7-16.9); LYMPH % 22.2 % (8-40); MCHC 32.3 g/dl (32.0-35.9); MEAN CELL VOLUME 74.3 fl (80-96); MEAN PLT VOLUME 8.2 fl (7.5-11.1); MONO % 7.1 % (3.8-10.2); NEUT % 70.2 % (42.8-82.8); PLATELET COUNT 289 K/MM3 (134-434); RBC 4.34 M/mm3 (4.00-5.60); RDW 16.7 % (11.9-15.9); WHITE BLOOD COUNT 6.5 K/mm3 (4.0-10.0)
[2020-09-14 08:25] LABS: ALBUMIN 3.4 g/dl (3.4-5.0); CALCIUM 8.7 mg/dL (8.5-10.1); MAGNESIUM 2.2 mg/dL (1.8-2.4)
[2020-09-14 08:28] LABS: BILIRUBIN,TOTAL 0.8 mg/dL (0.2-1); CREATININE 0.6 mg/dL (0.55-1.3); PHOSPHOROUS 2.9 mg/dL (2.5-4.9); TOT PROT 7.8 g/dl (6.4-8.2)
[2020-09-14] MEDS ORDERED: PT OWN MED DRAWER 7, Y5N ONE ×2 (09:03→14:27)
[2020-09-14] MEDS: cloNIDine HCL 0.1 MG TABLET PO SCH ×2 (09:56→21:08)
[2020-09-14] MEDS: CALCIUM ACETATE/AL SULFATE TOP 1.9 GM/PACKET PACKET TP SCH (09:57)
[2020-09-14] MEDS: ENOXAPARIN NA (PORCINE) 40 MG/0.4 ML DISP.SYRIN SQ SCH (09:57)
[2020-09-14] MEDS: SILVER SULFADIAZINE 1% TOP CREAM 400 GM JAR TP SCH (09:58)
[2020-09-14] MEDS: MINERAL OIL/PET HY-PHL TOPICAL OINTMENT 454 GM JAR TP SCH ×2 (10:04→21:11)
[2020-09-14] MEDS: VANCOMYCIN 1 GM in D5W (PRE-DOCKED) 1,000 MG/250 ML IVPB SCH (15:12)
[2020-09-15] MEDS: INSULIN SLIDING SCALE (NOVOLOG) 1 VIAL SQ SCH ×4 (06:01→21:06)
[2020-09-15 07:56] LABS: BASO % 0.7 % (0-2.0); EOS % 0.9 % (0-4.5); HEMATOCRIT 32.1 % (35.4-49); HEMOGLOBIN 10.4 GM/dL (11.7-16.9); LYMPH % 28.4 % (8-40); MCH 24.1 pg (25.7-33.7); MCHC 32.5 g/dl (32.0-35.9); MEAN CELL VOLUME 74.1 fl (80-96); MEAN PLT VOLUME 7.9 fl (7.5-11.1); MONO % 7.7 % (3.8-10.2); NEUT % 62.3 % (42.8-82.8); PLATELET COUNT 291 K/MM3 (134-434); RBC 4.32 M/mm3 (4.00-5.60); RDW 17.1 % (11.9-15.9); WHITE BLOOD COUNT 6.2 K/mm3 (4.0-10.0)
[2020-09-15 08:16] LABS: CALCIUM 8.9 mg/dL (8.5-10.1)
[2020-09-15 08:17] LABS: ALBUMIN 3.3 g/dl (3.4-5.0); BLOOD UREA NITROGEN 14.1 mg/dL (7-18); MAGNESIUM 2.3 mg/dL (1.8-2.4)
[2020-09-15 08:20] LABS: CREATININE 0.6 mg/dL (0.55-1.3); PHOSPHOROUS 3.9 mg/dL (2.5-4.9)
[2020-09-15 08:21] LABS: BILIRUBIN,TOTAL 0.4 mg/dL (0.2-1); TOT PROT 7.5 g/dl (6.4-8.2)
[2020-09-15] MEDS ORDERED: PT OWN MED DRAWER 7, Y5N ONE ×2 (09:03→15:14)
[2020-09-15] MEDS: CALCIUM ACETATE/AL SULFATE TOP 1.9 GM/PACKET PACKET TP SCH (09:05)
[2020-09-15] MEDS: cloNIDine HCL 0.1 MG TABLET PO SCH ×2 (09:05→21:04)
[2020-09-15] MEDS: MINERAL OIL/PET HY-PHL TOPICAL OINTMENT 454 GM JAR TP SCH ×2 (09:05→21:06)
[2020-09-15] MEDS: SILVER SULFADIAZINE 1% TOP CREAM 400 GM JAR TP SCH (09:06)
[2020-09-15] MEDS: ENOXAPARIN NA (PORCINE) 40 MG/0.4 ML DISP.SYRIN SQ SCH (09:06)
[2020-09-15] MEDS ORDERED: POVIDONE-IODINE OINTMENT 10% - 28.4 GM TUBE TP ONE (12:50)
[2020-09-15] MEDS: VANCOMYCIN/WATER BAGS 1,250 MG/250 ML BAG IVPB SCH (15:32)
[2020-09-15] MEDS: LISINOPRIL 10 MG TABLET PO SCH (19:49)
[2020-09-16] MEDS: VANCOMYCIN/WATER BAGS 1,250 MG/250 ML BAG IVPB SCH ×2 (03:16→15:02)
[2020-09-16] MEDS ORDERED: PT OWN MED DRAWER 7, Y5N ONE ×4 (04:30→14:37)
[2020-09-16] MEDS: INSULIN SLIDING SCALE (NOVOLOG) 1 VIAL SQ SCH ×4 (06:07→21:39)
[2020-09-16] MEDS: MULTIVIT-MINERALS ORAL LIQUID PO SCH ×2 (10:03→10:09)
[2020-09-16] MEDS: cloNIDine HCL 0.1 MG TABLET PO SCH ×2 (10:03→21:38)
[2020-09-16] MEDS: LISINOPRIL 10 MG TABLET PO SCH (10:04)
[2020-09-16] MEDS: ENOXAPARIN NA (PORCINE) 40 MG/0.4 ML DISP.SYRIN SQ SCH (10:04)
[2020-09-16] MEDS: MINERAL OIL/PET HY-PHL TOPICAL OINTMENT 454 GM JAR TP SCH ×2 (10:04→21:26)
[2020-09-16] MEDS: SILVER SULFADIAZINE 1% TOP CREAM 400 GM JAR TP SCH (13:14)
[2020-09-16] MEDS: CALCIUM ACETATE/AL SULFATE TOP 1.9 GM/PACKET PACKET TP SCH (13:14)
[2020-09-16] MEDS: BACITRACIN 15 GM TUBE TOPICAL OINTMENT TP SCH (13:49)
[2020-09-17] MEDS: VANCOMYCIN/WATER BAGS 1,250 MG/250 ML BAG IVPB SCH ×2 (04:34→14:52)
[2020-09-17] MEDS: INSULIN SLIDING SCALE (NOVOLOG) 1 VIAL SQ SCH ×2 (06:17→11:11)
[2020-09-17 07:21] VITALS: BP 129/53; PULSE 75; TEMP 98.3
[2020-09-17] MEDS ORDERED: PT OWN MED DRAWER 7, Y5N ONE (09:22)
[2020-09-17] MEDS: LISINOPRIL 10 MG TABLET PO SCH (09:27)
[2020-09-17] MEDS: cloNIDine HCL 0.1 MG TABLET PO SCH (09:27)
[2020-09-17] MEDS: MULTIVIT-MINERALS ORAL LIQUID PO SCH (09:28)
[2020-09-17] MEDS: ENOXAPARIN NA (PORCINE) 40 MG/0.4 ML DISP.SYRIN SQ SCH (09:28)
[2020-09-17] MEDS ORDERED: DOXYCYCLINE HYCLATE 100 MG CAPSULE PO ONE (10:15)
[2020-09-17] MEDS: MINERAL OIL/PET HY-PHL TOPICAL OINTMENT 454 GM JAR TP SCH (11:14)
[2020-09-17] MEDS: BACITRACIN 15 GM TUBE TOPICAL OINTMENT TP SCH (11:15)
[2020-09-17] MEDS: CALCIUM ACETATE/AL SULFATE TOP 1.9 GM/PACKET PACKET TP SCH (11:15)
[2020-09-17] MEDS: SILVER SULFADIAZINE 1% TOP CREAM 400 GM JAR TP SCH (11:15)
== END 2020-09-17 15:18 | disposition home or self-care (01) | DRG 603 ==
LOC: JER 20:48 → JERBED 09-12 01:04 → J8W 09-12 03:54
PROVIDERS: ADMIT Hospitalist; ATTEND Internal Medicine
DX: L03.116 Cellulitis of left lower limb (principal); F11.20 Opioid dependence, uncomplicated; L03.115 Cellulitis of right lower limb; E11.9 Type 2 diabetes mellitus without complications; I10 Essential (primary) hypertension; Z88.0 Allergy status to penicillin; D50.9 Iron deficiency anemia, unspecified
CPT/HCPCS: 36415; 73590-TC-LT-FY; 73590-TC-RT-FY; 73630-TC-LT; 73630-TC-RT-FY; 80053; 81003; 82728; 82962; 83036; 83540; 83550; 83605; 83735; 84100; 85025; 85610; 85651; 85730; 86140; 87040; 87070; 87205; 87536; 93005; 93010; 99285-25; C9803; G0480; J0735; U0003; U0005

== ENCOUNTER 2021-06-04 10:08 | Observation (INO) | payer BC, OTHER ==
[2021-06-04] MEDS ORDERED: ACETAMINOPHEN 1000 MG/100 ML BAG IVPB ONE (10:51)
[2021-06-04] MEDS ORDERED: SODIUM CHLORIDE 0.9% 500 ML INFUS.BAG IV ONE (10:51)
[2021-06-04] MEDS ORDERED: ACETAMINOPHEN INJECTION 100 ML IVPB ONE (11:02)
[2021-06-04] MEDS ORDERED: CLINDAMYCIN 600MG PREMIX IVPB 600 MG/50 ML BAG IVPB ONE (11:35)
[2021-06-04 12:12] LABS: VENOUS O2 SATURATION 66.3 % (70-80); VENOUS PCO2 42.9 mmHg (38-52); VENOUS PH 7.4 (7.310-7.410)
[2021-06-04 12:15] LABS: BASO % 0.4 % (0-2.0); EOS % 0.5 % (0-4.5); HEMATOCRIT 30.8 % (35.4-49); HEMOGLOBIN 9.4 GM/dL (11.7-16.9); LYMPH % 10.5 % (8-40); MCHC 30.5 g/dl (32.0-35.9); MEAN CELL VOLUME 64.2 fl (80-96); MEAN PLT VOLUME 8.3 fl (7.5-11.1); MONO % 4.1 % (3.8-10.2); NEUT % 84.5 % (42.8-82.8); PLATELET COUNT 317 10^3/uL (134-434); RDW 19.2 % (11.9-15.9); WHITE BLOOD COUNT 6.3 K/mm3 (4.0-10.0)
[2021-06-04 12:16] LABS: MCH 19.6 pg (25.7-33.7)
[2021-06-04 12:22] LABS: INR 1.15 (0.83-1.09); PROTHROMBIN TIME (PATIENT) 13.2 SEC (9.7-13.0)
[2021-06-04 12:24] LABS: ACTIVATED PTT 33.1 SECONDS (25.2-36.5)
[2021-06-04 12:45] LABS: CALCIUM 9.4 mg/dL (8.5-10.1)
[2021-06-04 12:46] LABS: ALBUMIN 3.7 g/dl (3.4-5.0); BLOOD UREA NITROGEN 8.5 mg/dL (7-18)
[2021-06-04 12:49] LABS: CREATININE 0.7 mg/dL (0.55-1.3)
[2021-06-04 12:50] LABS: BILIRUBIN,TOTAL 0.4 mg/dL (0.2-1); TOT PROT 8.1 g/dl (6.4-8.2)
[2021-06-04 13:49] LABS: PH,URINE >= 9.0 (5.0-8.0); URINE APPEARANCE CLEAR; URINE BILIRUBIN NEGATIVE (NEGATIVE); URINE COLOR YELLOW; URINE GLUCOSE (UA) NEGATIVE (NEGATIVE); URINE KETONE 1+ (NEGATIVE); URINE LEUK ESTERASE NEGATIVE (NEGATIVE); URINE NITRITE NEGATIVE (NEGATIVE); URINE PROTEIN NEGATIVE (NEGATIVE); URINE UROBILINOGEN 0.2 mg/dL (0.2-1.0)
[2021-06-04] MEDS ORDERED: MINERAL OIL ENEMA 133 ML ENEMA PR ONE (14:59)
[2021-06-04] MEDS ORDERED: DOCUSATE NA 100 MG/10 ML UNIT-DOSE CUPS PO ONE (15:23)
[2021-06-04] MEDS ORDERED: MAGNESIUM CITRATE 300 ML BOTTLE PO ONE (15:24)
[2021-06-04] MEDS ORDERED: CIPROFLOXACIN 500 MG TABLET (RESTRICTED TO ID) PO ONE (15:29)
[2021-06-04] MEDS ORDERED: SENNOSIDES 8.6MG TABLET (FP) PO PRN (16:14)
[2021-06-04] MEDS ORDERED: cloNIDine HCL 0.1 MG TABLET PO PRN (16:17)
[2021-06-04] MEDS ORDERED: ACETAMINOPHEN 325 MG TABLET (FP) PO PRN (16:21)
[2021-06-04] MEDS ORDERED: BACITRACIN 15 GM TUBE TOPICAL OINTMENT TP SCH (16:30)
[2021-06-04] MEDS: BACITRACIN 15 GM TUBE TOPICAL OINTMENT TP SCH (17:31)
[2021-06-04] MEDS ORDERED: SODIUM PHOSPHATE/NA BIPHOS 133 ML ENEMA PR PRN (18:04)
[2021-06-04] MEDS ORDERED: DOCUSATE SODIUM 100 MG CAPSULE (FP) PO ONE (22:20)
[2021-06-04] MEDS ORDERED: POLYETHYLENE GLYCOL (HEALTHYLAX) 3350 17 GM PACKET ONE (22:20)
[2021-06-04] MEDS ORDERED: SENNOSIDES 8.6MG TABLET (FP) PO ONE (22:20)
[2021-06-04] MEDS: DOCUSATE SODIUM 100 MG CAPSULE (FP) PO SCH (22:24)
[2021-06-04] MEDS: POLYETHYLENE GLYCOL 3350 119 GM BTL PO SCH (22:24)
[2021-06-04] MEDS: SENNOSIDES 8.6MG TABLET (FP) PO SCH (22:25)
[2021-06-05] MEDS: CLINDAMYCIN 600MG PREMIX IVPB 600 MG/50 ML BAG IVPB SCH ×3 (02:12→17:59)
[2021-06-05] MEDS: AMMONIUM LACTATE 12% LOTION 225 GM BOTTLE TP SCH ×3 (02:13→21:33)
[2021-06-05 04:33] VITALS: BMI 31.6
[2021-06-05] MEDS: POLYETHYLENE GLYCOL 3350 119 GM BTL PO SCH ×2 (05:43→14:50)
[2021-06-05] MEDS ORDERED: methaDONE HCL 10 MG TABLET PO ONE (06:00)
[2021-06-05] MEDS ORDERED: POTASSIUM CHLORIDE TABS 20 MEQ TABLET.ER (FP) PO ONE (09:00)
[2021-06-05 09:03] LABS: ALBUMIN 3.5 g/dl (3.4-5.0); BLOOD UREA NITROGEN 8.7 mg/dL (7-18); CREATININE 0.7 mg/dL (0.55-1.3)
[2021-06-05 09:04] LABS: CALCIUM 8.5 mg/dL (8.5-10.1); TOT PROT 7.5 g/dl (6.4-8.2)
[2021-06-05 09:05] LABS: BILIRUBIN,TOTAL 0.5 mg/dL (0.2-1)
[2021-06-05] MEDS ORDERED: ACETAMINOPHEN 1000 MG/100 ML BAG IVPB PRN (09:49)
[2021-06-05 09:57] LABS: BASO % 0.6 % (0-2.0); EOS % 0.2 % (0-4.5); HEMATOCRIT 28.8 % (35.4-49); HEMOGLOBIN 9.2 GM/dL (11.7-16.9); LYMPH % 15.1 % (8-40); MCH 20.1 pg (25.7-33.7); MCHC 31.9 g/dl (32.0-35.9); MEAN CELL VOLUME 62.9 fl (80-96); MEAN PLT VOLUME 8.1 fl (7.5-11.1); MONO % 7.4 % (3.8-10.2); NEUT % 76.7 % (42.8-82.8); PLATELET COUNT 306 10^3/uL (134-434); RBC 4.58 M/mm3 (4.00-5.60); RDW 18.7 % (11.9-15.9); WHITE BLOOD COUNT 6.7 K/mm3 (4.0-10.0)
[2021-06-05] MEDS ORDERED: FLU VACC QS2021-22(6MOS UP)/PF 60 MCG/0.5 ML SYRINGE IM ONE (10:00)
[2021-06-05] MEDS: LISINOPRIL 10 MG TABLET PO SCH (10:18)
[2021-06-05] MEDS: BACITRACIN 15 GM TUBE TOPICAL OINTMENT TP SCH (10:18)
[2021-06-05] MEDS: DOCUSATE SODIUM 100 MG CAPSULE (FP) PO SCH ×2 (10:18→21:32)
[2021-06-05] MEDS: metoPROLOL SUCCINATE 25 MG TAB.SR.24H (FP) PO SCH (10:18)
[2021-06-05] MEDS: FAMOTIDINE 20 MG TABLET PO SCH (10:18)
[2021-06-05] MEDS: ENOXAPARIN NA (PORCINE) 40 MG/0.4 ML DISP.SYRIN SQ SCH (10:18)
[2021-06-05] MEDS ORDERED: ALPRAZolam 1 MG TABLET PO ONE (17:50)
[2021-06-05] MEDS: POLYETHYLENE GLYCOL (HEALTHYLAX) 3350 17 GM PACKET PO SCH (21:32)
[2021-06-05] MEDS: SENNOSIDES 8.6MG TABLET (FP) PO SCH (21:32)
[2021-06-06] MEDS: CLINDAMYCIN 600MG PREMIX IVPB 600 MG/50 ML BAG IVPB SCH ×2 (01:46→11:53)
[2021-06-06] MEDS: POLYETHYLENE GLYCOL (HEALTHYLAX) 3350 17 GM PACKET PO SCH ×3 (06:17→21:36)
[2021-06-06 09:50] LABS: BASO % 0.6 % (0-2.0); EOS % 0.6 % (0-4.5); HEMATOCRIT 30.5 % (35.4-49); HEMOGLOBIN 9.8 GM/dL (11.7-16.9); LYMPH % 14.9 % (8-40); MCH 20.2 pg (25.7-33.7); MCHC 32.2 g/dl (32.0-35.9); MEAN CELL VOLUME 62.7 fl (80-96); MEAN PLT VOLUME 8.3 fl (7.5-11.1); MONO % 6.5 % (3.8-10.2); NEUT % 77.4 % (42.8-82.8); PLATELET COUNT 320 10^3/uL (134-434); RBC 4.86 M/mm3 (4.00-5.60); RDW 19.3 % (11.9-15.9); WHITE BLOOD COUNT 7.3 K/mm3 (4.0-10.0)
[2021-06-06 09:56] LABS: INR 1.45 (0.83-1.09); PROTHROMBIN TIME (PATIENT) 16.7 SEC (9.7-13.0)
[2021-06-06] MEDS ORDERED: SODIUM PHOSPHATE/NA BIPHOS 133 ML ENEMA PR SCH (10:00)
[2021-06-06 10:24] LABS: CALCIUM 8.4 mg/dL (8.5-10.1)
[2021-06-06 10:28] LABS: CREATININE 0.6 mg/dL (0.55-1.3)
[2021-06-06] MEDS ORDERED: methaDONE HCL 10 MG TABLET ONE (11:50)
[2021-06-06] MEDS: FAMOTIDINE 20 MG TABLET PO SCH (11:52)
[2021-06-06] MEDS: LISINOPRIL 10 MG TABLET PO SCH (11:52)
[2021-06-06] MEDS: DOCUSATE SODIUM 100 MG CAPSULE (FP) PO SCH ×2 (11:52→21:35)
[2021-06-06] MEDS: BACITRACIN 15 GM TUBE TOPICAL OINTMENT TP SCH (11:53)
[2021-06-06] MEDS: AMMONIUM LACTATE 12% LOTION 225 GM BOTTLE TP SCH ×2 (11:53→21:35)
[2021-06-06] MEDS: metoPROLOL SUCCINATE 25 MG TAB.SR.24H (FP) PO SCH (11:54)
[2021-06-06] MEDS ORDERED: POTASSIUM CHLORIDE TABS 20 MEQ TABLET.ER (FP) PO ONE (14:11)
[2021-06-06] MEDS: SENNOSIDES 8.6MG TABLET (FP) PO SCH (21:35)
[2021-06-07] MEDS: POLYETHYLENE GLYCOL (HEALTHYLAX) 3350 17 GM PACKET PO SCH ×4 (06:40→21:19)
[2021-06-07] MEDS: metoPROLOL SUCCINATE 25 MG TAB.SR.24H (FP) PO SCH (09:26)
[2021-06-07] MEDS: LISINOPRIL 10 MG TABLET PO SCH (09:26)
[2021-06-07] MEDS: DOCUSATE SODIUM 100 MG CAPSULE (FP) PO SCH ×2 (09:26→21:19)
[2021-06-07] MEDS: FAMOTIDINE 20 MG TABLET PO SCH (09:26)
[2021-06-07] MEDS: ENOXAPARIN NA (PORCINE) 40 MG/0.4 ML DISP.SYRIN SQ SCH (09:27)
[2021-06-07 09:30] LABS: MAGNESIUM 2.2 mg/dL (1.8-2.4)
[2021-06-07 09:32] LABS: PHOSPHOROUS 2.6 mg/dL (2.5-4.9)
[2021-06-07] MEDS ORDERED: methaDONE HCL 10 MG TABLET PO ONE (10:00)
[2021-06-07] MEDS: BACITRACIN 15 GM TUBE TOPICAL OINTMENT TP SCH (10:26)
[2021-06-07] MEDS: AMMONIUM LACTATE 12% LOTION 225 GM BOTTLE TP SCH ×2 (10:26→21:19)
[2021-06-07] MEDS: Methylnaltrexone Bromide 12 MG/0.6 ML KIT SQ SCH (14:21)
[2021-06-07] MEDS: SENNOSIDES 8.6MG TABLET (FP) PO SCH (21:19)
[2021-06-08] MEDS: POLYETHYLENE GLYCOL (HEALTHYLAX) 3350 17 GM PACKET PO SCH ×2 (06:23→14:14)
[2021-06-08] MEDS: metoPROLOL SUCCINATE 25 MG TAB.SR.24H (FP) PO SCH (09:48)
[2021-06-08] MEDS: ENOXAPARIN NA (PORCINE) 40 MG/0.4 ML DISP.SYRIN SQ SCH (09:48)
[2021-06-08] MEDS: FAMOTIDINE 20 MG TABLET PO SCH (09:50)
[2021-06-08] MEDS: DOCUSATE SODIUM 100 MG CAPSULE (FP) PO SCH (09:52)
[2021-06-08] MEDS: LISINOPRIL 10 MG TABLET PO SCH (09:52)
[2021-06-08] MEDS: AMMONIUM LACTATE 12% LOTION 225 GM BOTTLE TP SCH (09:53)
[2021-06-08] MEDS: BACITRACIN 15 GM TUBE TOPICAL OINTMENT TP SCH (09:53)
[2021-06-08] MEDS ORDERED: methaDONE HCL 10 MG TABLET ONE (09:54)
[2021-06-08] MEDS: Methylnaltrexone Bromide 12 MG/0.6 ML KIT SQ SCH (10:02)
[2021-06-08 15:07] VITALS: BP 153/75; PULSE 71; TEMP 98.6
[2021-06-09] MEDS ORDERED: LISINOPRIL 20 MG TABLET PO SCH (10:00)
[2021-06-09] MEDS ORDERED: methaDONE HCL 10 MG TABLET PO ONE (10:00)
== END 2021-06-08 17:30 | disposition left against medical advice (07) ==
LOC: JER 10:08 → INTOOBSV 14:56 → JERBED 14:56 → UNDOADMOB 14:56 → JERBED 16:14 → J6S 06-05 01:05
PROVIDERS: ADMIT Internal Medicine; ATTEND Internal Medicine
PROC: 3E033NZ Introduction of Analgesics, Hypnotics, Sedatives into Peripheral Vein, Percutaneous Approach (ICD-10-PCS; principal; 2021-06-04)
PROC: 3E03329 Introduction of Other Anti-infective into Peripheral Vein, Percutaneous Approach (ICD-10-PCS; 2021-06-04)
PROC: 3E023GC Introduction of Other Therapeutic Substance into Muscle, Percutaneous Approach (ICD-10-PCS; 2021-06-04)
PROC: 3E0234Z Introduction of Serum, Toxoid and Vaccine into Muscle, Percutaneous Approach (ICD-10-PCS; 2021-06-04)
PROC: 3E0337Z Introduction of Electrolytic and Water Balance Substance into Peripheral Vein, Percutaneous Approach (ICD-10-PCS; 2021-06-04)
PROC: 3E033NZ Introduction of Analgesics, Hypnotics, Sedatives into Peripheral Vein, Percutaneous Approach (ICD-10-PCS; 2021-06-04)
DX: K56.41 Fecal impaction (principal); L03.114 Cellulitis of left upper limb; E66.9 Obesity, unspecified; D70.9 Neutropenia, unspecified; R50.81 Fever presenting with conditions classified elsewhere; D50.9 Iron deficiency anemia, unspecified; F11.10 Opioid abuse, uncomplicated; Z29.9 Encounter for prophylactic measures, unspecified; I10 Essential (primary) hypertension; L03.90 Cellulitis, unspecified; L53.8 Other specified erythematous conditions; Z68.31 Body mass index [BMI] 31.0-31.9, adult; Z88.0 Allergy status to penicillin
CPT/HCPCS: 36415; 71045-TC-FY; 73090-TC-LT-FY; 74177-TC; 80048; 80053; 81003; 82272; 82550; 82553; 82728; 82803; 82962; 83036; 83540; 83550; 83605; 83735; 84100; 85025; 85610; 85730; 86705; 86803; 86850; 86900; 86901; 87040; 87086; 87340; 87517; 90686; 93005; 93010; 94010; 96365; 96366; 96367; 96372; 96374; 99285-25; C9803-CS; G0378; Q9967; U0003; U0005

== ENCOUNTER 2023-05-18 05:45 | Emergency (ER) | payer OTHER ==
[2023-05-18 05:50] VITALS: TEMP 97.7; BMI 27.2
[2023-05-18] MEDS: LACTATED RINGERS SOLUTION 1000 ML INFUS.BAG IV ONE (08:55)
[2023-05-18 08:58] LABS: INR 1.32 (0.83-1.09); PROTHROMBIN TIME (PATIENT) 15.3 SEC (9.7-13.0)
[2023-05-18 09:01] LABS: ACTIVATED PTT 18.5 SECONDS (25.2-36.5)
[2023-05-18 09:05] LABS: POTASSIUM 3.8 mmol/L (3.5-5.1)
[2023-05-18 09:07] LABS: BLOOD UREA NITROGEN 28.7 mg/dL (7-18); CALCIUM 9.2 mg/dL (8.5-10.1)
[2023-05-18 09:08] LABS: ALBUMIN 3.5 g/dl (3.4-5.0); MAGNESIUM 2.1 mg/dL (1.8-2.4)
[2023-05-18 09:10] LABS: CREATININE 0.6 mg/dL (0.55-1.3)
[2023-05-18 09:12] LABS: TOT PROT 7.7 g/dl (6.4-8.2)
[2023-05-18 09:14] LABS: BASO % 0.7 % (0-2.0); EOS % 0.6 % (0-4.5); HEMATOCRIT 38.6 % (35.4-49); LYMPH % 18.3 % (8-40); MCH 22.4 pg (25.7-33.7); MCHC 33.8 g/dl (32.0-35.9); MEAN CELL VOLUME 66.3 fl (80-96); MEAN PLT VOLUME 8.9 fl (7.5-11.1); MONO % 8.1 % (3.8-10.2); NEUT % 72.3 % (42.8-82.8); PLATELET COUNT 267 10^3/uL (134-434); RBC 5.82 M/mm3 (4.00-5.60); WHITE BLOOD COUNT 10.4 K/mm3 (4.0-10.0)
[2023-05-18 10:25] LABS: POTASSIUM 3.2 mmol/L (3.5-5.1)
[2023-05-18 10:27] LABS: CALCIUM 9.1 mg/dL (8.5-10.1)
[2023-05-18 10:29] LABS: ALBUMIN 3.8 g/dl (3.4-5.0)
[2023-05-18 10:30] LABS: CREATININE 0.6 mg/dL (0.55-1.3)
[2023-05-18 10:32] LABS: BILIRUBIN,TOTAL 1.9 mg/dL (0.2-1); TOT PROT 7.9 g/dl (6.4-8.2)
[2023-05-18] MEDS ORDERED: POTASSIUM CHLORIDE TABS 20 MEQ TABLET.ER (FP) PO ONE (13:07)
[2023-05-18] MEDS: POTASSIUM CHLORIDE TABS 20 MEQ TABLET.ER (FP) PO ONE (13:14)
[2023-05-18 13:26] VITALS: BP 147/70; PULSE 109; RESP 18
== END 2023-05-18 13:50 | disposition home or self-care (01) ==
LOC: JER 05:45
DX: R53.1 Weakness (principal); R94.6 Abnormal results of thyroid function studies; R19.7 Diarrhea, unspecified; W19.XXXA Unspecified fall, initial encounter; Z20.822 Contact with and (suspected) exposure to COVID-19
CPT/HCPCS: 0241U-QW; 36415; 71045-TC-FY; 80053; 83690; 83735; 84100; 84439; 84443; 84484; 85025; 85610; 85730; 86850; 86900; 86901; 93005; 93010; 99285-25